=== PATIENT | female | born 1930 | race Caucasian/White ===

== ENCOUNTER → 2016-12-15 | Outpatient (CLI) | payer MEDICARE, BC | LOC: MW.CHRC 14:23 | PROVIDERS: ATTEND Family Medicine | DX: R32 Unspecified urinary incontinence (principal); R73.9 Hyperglycemia, unspecified; R19.7 Diarrhea, unspecified; R06.09 Other forms of dyspnea; Z53.9 Procedure and treatment not carried out, unspecified reason; G30.9 Alzheimer's disease, unspecified | CPT/HCPCS: 99214 ==

== ENCOUNTER → 2017-01-19 | Outpatient (CLI) | payer MEDICARE, BC ==
[2017-01-19 15:48] LABS: CHLORIDE,CL 110 mmol/L (98-110); SODIUM,NA 142 mmol/L (136-146)
== END ==
LOC: MW.CHRC 15:05
PROVIDERS: ATTEND Family Medicine
DX: R73.9 Hyperglycemia, unspecified (principal); R32 Unspecified urinary incontinence; G30.9 Alzheimer's disease, unspecified; R19.7 Diarrhea, unspecified; R06.09 Other forms of dyspnea
CPT/HCPCS: 36415; 80048; 81001; 85025; 99214

== ENCOUNTER 2017-01-20 20:48 | Emergency (ER) | payer MEDICARE, BC ==
[2017-01-20] MEDS ORDERED: Sodium Chloride 0.9% 10 ML Syringe FLUSH PRN (21:25)
[2017-01-20] MEDS ORDERED: Sodium Chloride 0.9% 2.5 ML Syringe FLUSH PRN (21:25)
--- NOTE | 2017-01-20 21:30 | EDM.PDOC ---
ED HPI GENERAL MEDICAL PROBLEM - General Chief Complaint: Neuro Symptoms/Deficits Stated Complaint: PT HAS PAIN AND WEAK Time Seen by Provider: 01/20/17 21:14 - History of Present Illness INITIAL COMMENTS - FREE TEXT/NARRATIVE: HISTORY AND PHYSICAL: History of present illness: The patient is an 86-year-old female who follows in our family practice clinic and was seen in the clinic yesterday and presents with daughter is with multiple new complaints. According to the family she had basic labs done yesterday which I have reviewed, CBC CMP BNP and a UA and she was given a shot for shingles. She complained of some shortness of breath yesterday which was addressed by the physician. According to the family today she had no fevers chills vomiting and has had chronic diarrhea which is not new. They state that she ate normally throughout the day and did complain of a little shortness of breath and seemed more forgetful. She had no dizziness lightheadedness and did not fall. According to them she woke from a nap and immediately complained of diffuse mid and lower abdominal cramping and pain and she seemed to be more forgetful and confused upon awakening. The patient at that time had no speech changes facial drooping or any focal weakness. She seemed to have exhibited to them generalized weakness and inability to stand. She also seemed more short of breath but did not complain of any specific chest pain. She states she's been urinating normally and has no flank pain. She has no upper respiratory complaints no fevers or chills. The family also states that she seemed to be weaker than usual and had difficulty transferring due to weakness in her legs. She had no back or neck pain and no headache. The patient is a very poor historian due to her Alzheimer's and the daughters are presenting me with these multiple new complaints today. Review of systems: As per history of present illness and below otherwise all systems reviewed and negative. Past medical history: As per history of present illness and as reviewed below otherwise noncontributory. Surgical history: As per history of present illness and as reviewed below otherwise noncontributory. Social history: No reported history of drug or alcohol abuse. Family history: As per history of present illness and as reviewed below otherwise noncontributory. Physical exam: General: Well-developed overweight female who is nontoxic and speaking clearly and easily. Vital signs have been reviewed by me. HEENT: Atraumatic, normocephalic, pupils reactive, negative for conjunctival pallor or scleral icterus, mucous membranes moist, throat clear, neck supple, nontender, trachea midline. There is no cervical adenopathy or nuchal rigidity Lungs: Clear to auscultation with some crackles at the bases bilaterally but no work of breathing, breath sounds equal bilaterally, chest nontender. Heart: S1S2, regular rhythm but tachycardic rate on my evaluation, negative for clicks, rubs, or JVD. Abdomen: Soft, nondistended, normoactive bowel sounds, mild tympany in the upper abdomen and diffuse mid and lower mild tenderness on deep palpation bilaterally without rebound or guarding Negative for masses or hepatosplenomegaly. Negative for costovertebral tenderness. Pelvis: Stable nontender. Genitourinary: Deferred. Rectal: Deferred. Extremities: Atraumatic, negative for cords or calf pain. Neurovascular unremarkable. No pedal edema or leg asymmetry Neuro: Awake, alert, oriented. Cranial nerves II through XII unremarkable. Cerebellum unremarkable. Motor was intact 5/5 in the upper extremities the lower extremities it was a 3/5 bilaterally and the patient did have difficulty with transferring. and sensory unremarkable throughout. Exam nonfocal. Patient' s speech was intact and there is no evidence of any facial drooping or lateralizing Back: There are no midline step-offs his defects of the thoracic or lumbar spine and no CVA tenderness her posterior rib tenderness Diagnostics: EKG CBC CMP amylase lipase lactic acid BNP troponin TSH UA urine culture chest x -ray CT scan of the head abdomen and pelvis Therapeutics: Gentle IV fluids oxygen therapy monitor IV Flagyl by mouth Yusuf I discussed with the patient and family at bedside all testing results. I have discussed with them her very large hiatal hernia which may be causing some of her more chronic episodic shortness of breath. I will also discuss with him all the lab tests and have discussed with them the mild sigmoid diverticulitis which may be explaining her abdominal pain. The son seem to be very worried about her confusion that she had after awakening this evening but that has since resolved and I discussed with them the CT scan of the head. She does have a baseline history of Alzheimer's dementia. We discussed her weakness and possible admission but They overall feel that she looks much improved and they are comfortable taking her home. We will give antibiotics here and plan for antibiotics at home and close followup in the clinic. Patient is asking for oral hydration. Repeat heart rate is 81 Impression: Abdominal pain with mild sigmoid diverticulitis, episodic dyspnea with history of large hiatal hernia, history of Alzheimer's dementia and generalized weakness Definitive disposition and diagnosis as appropriate pending reevaluation and review of above. arm/epgastric Pain Score (Numeric/FACES): 5 - Related Data Allergies Allergy/AdvReac Type Severity Reaction Status Date / Time iodine Allergy Other Verified 01/20/17 21:06 Past Medical History HEENT History: Reports: Hard of hearing, Impaired vision 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 Respiratory History: Reports: None Gastrointestinal History: Reports: Hiatal hernia Neurological History: Reports: Alzheimers disease Endocrine/Metabolic History: Reports: Hypothyroidism - Infectious Disease History Infectious Disease History: Reports: Chicken pox, Measles, Mumps Social & Family History - Family History Family Medical History: Noncontributory - Tobacco Use Smoking Status *Q: Former Smoker Second Hand Smoke Exposure: No - Recreational Drug Use Recreational Drug Use: No ED ROS GENERAL - Review of Systems Review Of Systems: ROS reveals no pertinent complaints other than HPI. ED EXAM, GENERAL - Physical Exam Exam: See Below (See dictation) Course - Vital Signs Last Recorded V/S: Last Vital Signs Temp 37.2 C 01/20/17 23:05 Pulse 100 01/20/17 23:05 Resp 20 01/20/17 23:05 BP 105/52 L 01/20/17 23:05 Pulse Ox 96 01/20/17 23:05 - Orders/Labs/Meds Orders: Active Orders 24 hr Category Date Time Status Cardiac Monitoring [RC] . DIRECTED Care 01/20/17 21:24 Active EKG Documentation Completion [RC] STAT Care 01/20/17 21:24 Active Oxygen Therapy, ED [RC] ASDIRECTED Care 01/20/17 21:24 Active Pulse Oximetry [RC] ASDIRECTED Care 01/20/17 21:24 Active Abdomen Pelvis wo Cont [CT] Stat Exams 01/20/17 21:25 Taken Chest 1V Frontal [CR] Stat Exams 01/20/17 21:25 Taken Head wo Cont [CT] Stat Exams 01/20/17 21:25 Taken CULTURE URINE [RM] Stat Lab 01/20/17 22:25 Received Sodium Chloride 0.9% [Normal Saline] 250 ml Med 01/20/17 21:30 Active IV STAT Sodium Chloride 0.9% [Saline Flush] Med 01/20/17 21:25 Active 10 ml FLUSH ASDIRECTED PRN Sodium Chloride 0.9% [Saline Flush] Med 01/20/17 21:25 Active 2.5 ml FLUSH ASDIRECTED PRN metroNIDAZOLE/Normal Saline [Flagyl 500 MG in NS 100 ML Med 01/20/17 23:06 Active ] 500 mg Premix Bag 1 bag IV ONETIME Saline Lock Insert [OM.PC] Stat Oth 01/20/17 21:24 Ordered Medication Orders Sodium Chloride (Normal Saline) 250 mls @ 999 mls/hr IV STAT MARI Last Admin: 01/20/17 21:41 Dose: 999 mls/hr Metronidazole 500 mg/ Premix 100 mls @ 100 mls/hr IV ONETIME ONE Stop: 01/21/17 00:05 Last Admin: 01/20/17 23:13 Dose: 100 mls/hr Sodium Chloride (Saline Flush) 10 ml FLUSH ASDIRECTED PRN PRN Reason: Keep Vein Open Sodium Chloride (Saline Flush) 2.5 ml FLUSH ASDIRECTED PRN PRN Reason: Keep Vein Open Labs: Laboratory Tests 01/20/17 01/20/17 01/20/17 Range/Units 21:31 21:31 21:31 WBC 6.93 (4.0-11.0) K/uL RBC 4.28 L (4.30-5.90) M/uL Hgb 11.0 L (12.0-16.0) g/dL Hct 36.7 (36.0-46.0) % MCV 85.7 (80.0-98.0) fL MCH 25.7 L (27.0-32.0) pg MCHC 30.0 L (31.0-37.0) g/dL RDW Std Deviation 52.0 (28.0-62.0) fl RDW Coeff of Homer 17 H (11.0-15.0) % Plt Count 203 (150-400) K/uL MPV 10.30 (7.40-12.00) fL Neut % (Auto) 61.0 (48.0-80.0) % Lymph % (Auto) 21.6 (16.0-40.0) % [place] % (Auto) 14.9 (0.0-15.0) % Eos % (Auto) 2.2 (0.0-7.0) % Baso % (Auto) 0.3 (0.0-1.5) % Neut # 4.2 (1.4-5.7) K/uL Lymph # 1.5 (0.6-2.4) K/uL [place] # 1.0 H (0.0-0.8) K/uL Eos # 0.2 (0.0-0.7) K/uL Baso # 0.0 (0.0-0.1) K/uL Nucleated RBC % 0.0 /100WBC Nucleated RBCs # 0 K/uL Lactate 0.9 (0.20-2.00) mmol/L Sodium 143 (136-146) mmol/L Potassium 4.4 (3.5-5.1) mmol/L Chloride 110 (98-110) mmol/L Carbon Dioxide 24 (21-31) mmol/L BUN 18 (6.0-23.0) mg/dL Creatinine 0.8 (0.6-1.5) mg/dL Est Cr Clr Drug Dosing 37.60 mL/min Estimated GFR (MDRD) > 60.0 ml/min Glucose 90 (60-110) mg/dL Calcium 9.1 (8.8-10.8) mg/dL Total Bilirubin 0.4 (0.1-1.5) mg/dL AST 22 (5-40) IU/L ALT 17 (8-54) IU/L Alkaline Phosphatase 70 (40-150) Troponin I (0.0-0.29) NG/ML B-Natriuretic Peptide (<100) PG/ML Total Protein 7.5 (6.0-8.0) g/dL Albumin 3.5 (3.4-4.8) g/dL Globulin 4.0 H (2.0-3.5) g/dL Albumin/Globulin Ratio 0.9 L (1.3-2.8) Amylase 117 H (10-90) U/L Lipase 86 H (7-80) U/L TSH 3rd Generation 2.79 (0.47-5.0) uIU/mL Urine Color Urine Appearance Urine pH (5.0-8.0) Ur Specific [place] (1.001-1.035) Urine Protein (NEGATIVE) mg/dL Urine Glucose (UA) (NEGATIVE) mg/dL Urine Ketones (NEGATIVE) mg/dL Urine Occult Blood (NEGATIVE) Urine Nitrite (NEGATIVE) Urine Bilirubin (NEGATIVE) Urine Urobilinogen (<2.0) EU/dL Ur Leukocyte Esterase (NEGATIVE) Urine RBC (0-2/HPF) Urine WBC (0-5/HPF) Ur Epithelial Cells (NONE-FEW) Other Crystals Urine Mucus (NONE-MOD) 01/20/17 01/20/17 01/20/17 Range/Units 21:31 21:31 22:25 WBC (4.0-11.0) K/uL RBC (4.30-5.90) M/uL Hgb (12.0-16.0) g/dL Hct (36.0-46.0) % MCV (80.0-98.0) fL MCH (27.0-32.0) pg MCHC (31.0-37.0) g/dL RDW Std Deviation (28.0-62.0) fl RDW Coeff of Homer (11.0-15.0) % Plt Count (150-400) K/uL MPV (7.40-12.00) fL Neut % (Auto) (48.0-80.0) % Lymph % (Auto) (16.0-40.0) % [place] % (Auto) (0.0-15.0) % Eos % (Auto) (0.0-7.0) % Baso % (Auto) (0.0-1.5) % Neut # (1.4-5.7) K/uL Lymph # (0.6-2.4) K/uL [place] # (0.0-0.8) K/uL Eos # (0.0-0.7) K/uL Baso # (0.0-0.1) K/uL Nucleated RBC % /100WBC Nucleated RBCs # K/uL Lactate (0.20-2.00) mmol/L Sodium (136-146) mmol/L Potassium (3.5-5.1) mmol/L Chloride (98-110) mmol/L Carbon Dioxide (21-31) mmol/L BUN (6.0-23.0) mg/dL Creatinine (0.6-1.5) mg/dL Est Cr Clr Drug Dosing mL/min Estimated GFR (MDRD) ml/min Glucose (60-110) mg/dL Calcium (8.8-10.8) mg/dL Total Bilirubin (0.1-1.5) mg/dL AST (5-40) IU/L ALT (8-54) IU/L Alkaline Phosphatase (40-150) Troponin I < 0.10 (0.0-0.29) NG/ML B-Natriuretic Peptide 449 H (<100) PG/ML Total Protein (6.0-8.0) g/dL Albumin (3.4-4.8) g/dL Globulin (2.0-3.5) g/dL Albumin/Globulin Ratio (1.3-2.8) Amylase (10-90) U/L Lipase (7-80) U/L TSH 3rd Generation (0.47-5.0) uIU/mL Urine Color YELLOW Urine Appearance CLEAR Urine pH 5.0 (5.0-8.0) Ur Specific [place] 1.025 (1.001-1.035) Urine Protein NEGATIVE (NEGATIVE) mg/dL Urine Glucose (UA) NEGATIVE (NEGATIVE) mg/dL Urine Ketones NEGATIVE (NEGATIVE) mg/dL Urine Occult Blood SMALL H (NEGATIVE) Urine Nitrite NEGATIVE (NEGATIVE) Urine Bilirubin NEGATIVE (NEGATIVE) Urine Urobilinogen 1.0 (<2.0) EU/dL Ur Leukocyte Esterase NEGATIVE (NEGATIVE) Urine RBC 0-2 (0-2/HPF) Urine WBC 0-2 (0-5/HPF) Ur Epithelial Cells RARE (NONE-FEW) Other Crystals FEW Urine Mucus LIGHT (NONE-MOD) Meds: Medications Generic Name Dose Route Start Last Admin Trade Name Freq PRN Reason Stop Dose Admin Sodium Chloride 250 mls @ 999 mls/hr 01/20/17 21:30 01/20/17 21:41 Normal Saline IV 999 mls/hr STAT MARI Administration Metronidazole 500 mg/ Premix 100 mls @ 100 mls/hr 01/20/17 23:06 01/20/17 23: 13 IV 01/21/17 00:05 100 mls/hr ONETIME ONE Administration Sodium Chloride 10 ml 01/20/17 21:25 Saline Flush FLUSH ASDIRECTED PRN Keep Vein Open Sodium Chloride 2.5 ml 01/20/17 21:25 Saline Flush FLUSH ASDIRECTED PRN Keep Vein Open Discontinued Medications Generic Name Dose Route Start Last Admin Trade Name Maria Luz PRN Reason Stop Dose Admin Ciprofloxacin 500 mg 01/20/17 23:06 01/20/17 23:13 Ciprofloxacin Hcl PO 01/20/17 23:07 500 mg ONETIME ONE Administration Departure - Departure Time of Disposition: 23:09 Disposition: Home, Self-Care 01 Condition: good Clinical Impression: Generalized weakness, Sigmoid diverticulitis, Hiatal hernia Abdominal pain Qualifiers: Abdominal location: generalized Qualified Code(s): R10.84 - Generalized abdominal pain Dyspnea Qualifiers: Dyspnea type: unspecified Qualified Code(s): R06.00 - Dyspnea, unspecified Referrals: PCP,None [Primary Care Provider] - Forms: ED Department Discharge Additional Instructions: The following information is given to patients seen in the emergency department who are being discharged to home. This information is to outline your options for follow-up care. We provide all patients seen in our emergency department with a follow-up referral. The need for follow-up, as well as the timing and circumstances, are variable depending upon the specifics of your emergency department visit. If you don't have a primary care physician on staff, we will provide you with a referral. We always advise you to contact your personal physician following an emergency department visit to inform them of the circumstance of the visit and for follow-up with them and/or the need for any referrals to a consulting specialist. The emergency department will also refer you to a specialist when appropriate. This referral assures that you have the opportunity for followup care with a specialist. All of these measure are taken in an effort to provide you with optimal care, which includes your followup. Under all circumstances we always encourage you to contact your private physician who remains a resource for coordinating your care. When calling for followup care, please make the office aware that this follow-up is from your recent emergency room visit. If for any reason you are refused follow-up, please contact the [facility] emergency department at and ask to speak to the emergency department charge nurse. [facility] Primary care- [place] [address] Please try to push hydration and take antibiotics until finished. Please call and followup in the clinic in the next few days and return to ER as needed and as discussed. - My Orders Last 24 Hours: My Active Orders 01/20/17 21:24 Cardiac Monitoring [RC] . DIRECTED EKG Documentation Completion [RC] STAT Oxygen Therapy, ED [RC] ASDIRECTED Pulse Oximetry [RC] ASDIRECTED Saline Lock Insert [OM.PC] Stat 01/20/17 21:25 Abdomen Pelvis wo Cont [CT] Stat Chest 1V Frontal [CR] Stat Head wo Cont [CT] Stat Sodium Chloride 0.9% [Saline Flush] 10 ml FLUSH ASDIRECTED PRN Sodium Chloride 0.9% [Saline Flush] 2.5 ml FLUSH ASDIRECTED PRN 01/20/17 21:30 Sodium Chloride 0.9% [Normal Saline] 250 ml IV STAT 01/20/17 22:25 CULTURE URINE [RM] Stat 01/20/17 23:06 metroNIDAZOLE/Normal Saline [Flagyl 500 MG in NS 100 ML] 500 mg Premix Bag 1 bag IV ONETIME - Assessment/Plan Last 24 Hours: My Active Orders 01/20/17 21:24 Cardiac Monitoring [RC] . DIRECTED EKG Documentation Completion [RC] STAT Oxygen Therapy, ED [RC] ASDIRECTED Pulse Oximetry [RC] ASDIRECTED Saline Lock Insert [OM.PC] Stat 01/20/17 21:25 Abdomen Pelvis wo Cont [CT] Stat Chest 1V Frontal [CR] Stat Head wo Cont [CT] Stat Sodium Chloride 0.9% [Saline Flush] 10 ml FLUSH ASDIRECTED PRN Sodium Chloride 0.9% [Saline Flush] 2.5 ml FLUSH ASDIRECTED PRN 01/20/17 21:30 Sodium Chloride 0.9% [Normal Saline] 250 ml IV STAT 01/20/17 22:25 CULTURE URINE [RM] Stat 01/20/17 23:06 metroNIDAZOLE/Normal Saline [Flagyl 500 MG in NS 100 ML] 500 mg Premix Bag 1 bag IV ONETIME
[2017-01-20] MEDS: Sodium Chloride 0.9% 250 ML IV SCH (21:41)
[2017-01-20 22:05] LABS: CHLORIDE,CL 110 mmol/L (98-110); SODIUM,NA 143 mmol/L (136-146)
[2017-01-20] MEDS: metroNIDAZOLE/Normal Saline 500 MG in Premix Bag 1 BAG IV ONE (23:13)
[2017-01-20] MEDS: Ciprofloxacin 500 MG Tab PO ONE (23:13)
[2017-01-21 00:15] VITALS: BP 110/60
--- NOTE | 2017-01-21 18:51 | CR ---
EXAM DATE: 01/20/17 PATIENT'S AGE: 86 Patient: RAJENDRA MAC Facility: [place], [place] Site . Site : 1930 Study: XRay Chest [id number]/15/2017 9:48:47 PM Ordering Physician: Zoe Orlando Final Report: INDICATION: Shortness of breath and weakness TECHNIQUE: Chest 1 view. COMPARISON: 01/05/2017 FINDINGS: Cardiovascular and mediastinum: Stable cardiomegaly. Sternotomy wires noted. Large hiatal hernia. Lungs and pleural space: Lungs are clear. No sign of infiltrate or mass. No sign of pleural effusion. No pneumothorax. Bones and soft tissues: No significant findings. IMPRESSION: No acute pulmonary or cardiac abnormalities. Stable cardiomegaly. Stable large hiatal hernia. Dictated by Taurus Mcclendon MD @ Jan 20 2017 9:51PM (Electronic Signature) Report Signed by Proxy and Original Signed Document filed in the Medical Record. [facility]
--- NOTE | 2017-01-21 18:52 | CT ---
EXAM DATE: 01/20/17 PATIENT'S AGE: 86 Patient: RAJENDRA MAC Facility: [place], [place] Site . Site : 1932 Study: CT Head [id number]/15/2017 10:12:34 PM Ordering Physician: Zoe Orlando Final Report: INDICATION: Pain. Confusion. TECHNIQUE: CT head without contrast. COMPARISON: 07/23/2011 FINDINGS: There is age-related cerebral and cerebellar cortical atrophy, demonstrating interval progression, with proportionate ventriculomegaly, mildly increased. There is no mass effect or midline shift. White matter hypodensities are suggestive of chronic small vessel ischemic changes. 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 There is no loss of pinedo-white differentiation. There is no evidence of an acute intracranial hemorrhage. No acute calvarial fracture is seen. Rotational alignment of C1 on C2 could be positional. There are small mucosal retention cysts or polyps in the maxillary sinuses and debris in the right sphenoid sinus. The mastoid air cells are clear. The visualized orbits are stable. IMPRESSION: No evidence of an acute intracranial hemorrhage, mass effect or loss of pinedo- white differentiation. Atrophy, mildly progressed, and chronic ischemic changes. Rotational alignment of C1 on C2 could be positional. Correlate clinically. Dictated by Pato Cervantes MD @ 01/20/2017 10:28:20 PM Dictated by: Pato Cervantes MD @ 01/20/2017 22:28:25 (Electronic Signature) Report Signed by Proxy and Original Signed Document filed in the Medical Record. [facility]
--- NOTE | 2017-01-21 18:52 | CT ---
EXAM DATE: 01/20/17 PATIENT'S AGE: 86 Patient: RAJENDRA MAC Facility: [place], [place] Site . Site : 1930 Study: CT Abdomen/Pelvis [id number]/15/2017 10:13:52 PM Ordering Physician: Zoe Orlando Final Report: INDICATION: Epigastric pain TECHNIQUE: CT abdomen and pelvis without contrast. COMPARISON: None available FINDINGS: Lower chest: A large hiatal hernia containing the majority of the stomach comment which is located in the medial right base, and a portion of the transverse colon. Minor subsegmental atelectasis or scarring. Post sternotomy and CABG changes. Mildly decreased attenuation in the cardiac chambers is suggestive of anemia. Liver: Unremarkable. Spleen: Unremarkable. Pancreas: Unremarkable. Gallbladder and bile ducts: The gallbladder is not seen, probably resected. Adrenal glands: Unremarkable. Kidneys: No hydronephrosis or discrete urolithiasis. A 2.7 centimeter mildly higher than water attenuation right renal lesion and a 1.5 centimeter isodense lesion, not well evaluated. Probable small renal parapelvic cysts. GI tract: Mild prominence of the gastric antral wall could be related to luminal debris. No mechanical bowel obstruction. The appendix is not clearly seen. There is an ovoid low-attenuation structure along the serosal surface of the proximal ascending colon on images 80 -88, measuring up to 4.6 x 1.5 centimeters, of unclear etiology. Left colonic diverticulosis with mild stranding adjacent to a segment of sigmoid colon which could represent mild or resolving diverticulitis. Vascular structures: Atherosclerotic changes Lymph nodes: Unremarkable. Miscellaneous: Unremarkable. No free air or significant free fluid. Pelvic Organs: Unremarkable. Bones: Unremarkable for age. IMPRESSION: Colonic diverticulosis with mild stranding adjacent to the sigmoid colon suggestive of mild or resolving diverticulitis. A large hiatal hernia containing the majority of the stomach and a portion of the transverse colon. Thickening of the gastric antral wall could be related to luminal debris, however consider followup evaluation in this region. An ovoid low-attenuation structure along the proximal ascending colon wall, of unclear etiology. This is not seen at the expected location of the appendix, although appendiceal mucocele is not excluded. Neoplasm cannot be excluded either. Recommend formal colonic evaluation and followup. No obstructive uropathy. Higher than water attenuation right renal lesions, not well evaluated. Correlate with contrast MRI or sonographic evaluation to exclude solid lesions. Dictated by Pato Cervantes MD @ 01/20/2017 10:44:23 PM Dictated by: Pato Cervantes MD @ 01/20/2017 22:44:29 (Electronic Signature) Report Signed by Proxy and Original Signed Document filed in the Medical Record. [facility]
== END 2017-01-21 00:13 | disposition home or self-care (01) ==
LOC: MW.ED 20:48
DX: K44.9 Diaphragmatic hernia without obstruction or gangrene (principal); R06.09 Other forms of dyspnea; R41.0 Disorientation, unspecified; K57.32 Diverticulitis of large intestine without perforation or abscess without bleeding; E03.9 Hypothyroidism, unspecified; Z87.891 Personal history of nicotine dependence
CPT/HCPCS: 36415; 70450; 71010; 74176; 80053; 81001; 82150; 83605; 83690; 83880; 84443; 84484; 85025; 87086; 87088; 87186; 93005; 96365; 99285; A9270; J7050; 99284

== ENCOUNTER → 2017-01-20 | Outpatient (CLI) | payer MEDICARE, BC | END | disposition home or self-care (01) | LOC: MW.CHRC 14:14 | PROVIDERS: ATTEND Family Medicine | DX: R06.09 Other forms of dyspnea (principal) | CPT/HCPCS: 36415; 83880 ==

== ENCOUNTER 2017-03-23 17:01 | Inpatient (IN) | payer MEDICARE, BC ==
[2017-03-23] MEDS ORDERED: Sodium Chloride 0.9% 2.5 ML Syringe FLUSH PRN (17:18)
[2017-03-23] MEDS ORDERED: Sodium Chloride 0.9% 10 ML Syringe FLUSH PRN (17:18)
[2017-03-23] MEDS: Piperacillin/Tazobactam 3.375 GM in Sodium Chloride 0.9% 50 ML IV SCH ×2 (17:41→23:37)
--- NOTE | 2017-03-23 18:07 | PCM.HP ---
H&P History of Present Illness - General Date of Service: 03/23/17 Source of Information: Family History Limitations: Reports: Other (dementia) - History of Present Illness Initial Comments - Free Text/Narative: The history is obtained from the daughters. 86 yo female with history of dementia admitted for UTI. For the past 2 days she has not been able to walk, not able able to keep anything down and lethargic. Daughter states that the patient is not her usual self. She has been urinating frequently with foul odor. She does not have fever, n/v/d, abdominal pain, cough although she has been having rhinorrhea. Daughter is concerned with her walking. She was walking on her own until last few days where she cannot stand on her feet. She was crawling. The patient felt her muscle aches in the thighs. They are not sure if she has fallen. Since she is not able to walk, the daughters had to use wheelchair to bring her to her appointment today. - Related Data Allergies/Adverse Reactions: Allergies Allergy/AdvReac Type Severity Reaction Status Date / Time iodine Allergy Other Verified 01/20/17 21:06 Home Medications: Home Meds Aspirin 81 mg PO DAILY 03/23/17 [History] Cholecalciferol (Vitamin D3) [Vitamin D3] ASDIRECTED 03/23/17 [History] Clopidogrel Bisulfate [Clopidogrel] 1 tab PO DAILY 03/23/17 [History] Galantamine Hbr [Galantamine ER] 1 cap PO DAILY 03/23/17 [History] Levothyroxine Sodium [Levo-T] 1 tab PO DAILY 03/23/17 [History] Melatonin ASDIRECTED 03/23/17 [History] Memantine HCl [Namenda Xr] 1 cap PO DAILY 03/23/17 [History] Mirabegron [Myrbetriq] 1 tab PO DAILY 03/23/17 [History] [place]-3 Fatty Acids [Fish Oil] 600 mg PO ASDIRECTED 03/23/17 [History] Sertraline HCl [Zoloft] 1 tab PO DAILY 03/23/17 [History] Vitamin E ASDIRECTED 03/23/17 [History] atorvaSTATin Calcium [Atorvastatin Calcium] 1 tab PO DAILY 03/23/17 [History] Past Medical History HEENT History: Reports: Hard of Hearing, Impaired Vision 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 Respiratory History: Reports: None Gastrointestinal History: Reports: Hiatal Hernia Neurological History: Reports: Alzheimers Disease Endocrine/Metabolic History: Reports: Hypothyroidism - Infectious Disease History Infectious Disease History: Reports: Chicken Pox, Measles, Mumps Social & Family History - Family History Family Medical History: Noncontributory - Tobacco Use Smoking Status *Q: Former Smoker Second Hand Smoke Exposure: No - Recreational Drug Use Recreational Drug Use: No H&P Review of Systems - Review of Systems: Review Of Systems: See Below General: Reports: Malaise, Weakness, Fatigue, Decreased Appetite. Denies: Fever , Chills HEENT: Reports: No Symptoms, Rhinitis, Post Nasal Drip Pulmonary: Reports: Shortness of Breath Cardiovascular: Reports: No Symptoms Gastrointestinal: Reports: Decreased Appetite. Denies: Black Stool, Diarrhea, Difficulty Swallowing, Nausea, Vomiting Genitourinary: Reports: Frequency Musculoskeletal: Reports: Leg Pain Skin: Reports: No Symptoms Psychiatric: Reports: Confusion Neurological: Reports: No Symptoms Hematologic/Lymphatic: Reports: Anemia Exam - Exam Exam: See Below - Vital Signs Weight: 74.843 kg - Exam General: Alert, Oriented, Other (dementia. ) HEENT: Conjunctiva Clear, EOMI, Pupils Equal, Pupils Reactive Neck: Supple, Trachea Midline Lungs: Decreased Breath Sounds Cardiovascular: Regular Rate, Regular Rhythm, Systolic Murmur Abdomen: Normal Bowel Sounds, Soft, Tenderness Extremities: Normal Inspection, Normal Pulses. No: Calf Tenderness, Edema Peripheral Pulses: 2+: Dorsalis Pedis (L), Dorsalis Pedis (R) Skin: Warm Neurological: Cranial Nerves Intact, Reflexes Equal Bilateral, Strength Equal Bilateral, Sensation Intact Neuro Extensive - Mental Status: Alert, Normal Mood/Affect, Memory Loss-Remote Events, Memory Loss-Recent Events, Nl Response to Commands, Withdraws to Pain DTR: 2+: Achilles (L), Achilles (R) Psychiatric: Alert, Normal Affect, Normal Mood - Patient Data Presley Results last 24 hrs: Microbiology 03/23/17 17:36 Anaerobic Blood Culture - Final Blood - Venous - Lab Draw *Q Meaningful Use (ADM) - VTE *Q VTE Criteria *Q: - Stroke *Q Stroke Criteria *Q: - AMI *Q AMI Criteria *Q: Problem List Initiated/Reviewed/Updated: Yes Orders Last 24hrs: Active Orders 24 hr Category Date Time Status Regular Diet [DIET] Diet 03/23/17 Dinner Active CULTURE BLOOD [BC] Stat Lab 03/23/17 17:30 Received CULTURE BLOOD [BC] Stat Lab 03/23/17 17:36 Results Piperacillin/Tazobactam [Piperacil-Tazobact] 3.375 gm Med 03/23/17 17:30 Active Sodium Chloride 0.9% [Normal Saline] 50 ml IV Q6H Sodium Chloride 0.9% [Saline Flush] Med 03/23/17 17:18 Active 10 ml FLUSH ASDIRECTED PRN Sodium Chloride 0.9% [Saline Flush] Med 03/23/17 17:18 Active 2.5 ml FLUSH ASDIRECTED PRN Blood Culture x2 Reflex Set [OM.PC] Stat Oth 03/23/17 17:20 Ordered Peripheral IV Insertion Adult [OM.PC] Routine Oth 03/23/17 17:18 Ordered Code Status [Resuscitation Status] Routine Resus Stat 03/23/17 17:44 Ordered Medication Orders Piperacillin Sod/Tazobactam (Sod 3.375 gm/ Sodium Chloride) 50 mls @ 100 mls/ hr IV Q6H MARI Last Admin: 03/23/17 17:41 Dose: 100 mls/hr Sodium Chloride (Saline Flush) 10 ml FLUSH ASDIRECTED PRN PRN Reason: Keep Vein Open Sodium Chloride (Saline Flush) 2.5 ml FLUSH ASDIRECTED PRN PRN Reason: Keep Vein Open Assessment/Plan Comment:: 86 yo female admitted for UTI Start IVF and zosyn check cpk, lactate, blood cultures, urine cultures. Diet: regular CODE status: DNR If CPK is elevated: consider holding lipitor. may resume her synthroid, namenda, aspirn, plavix.
[2017-03-23] MEDS: Sodium Chloride 0.9% 1,000 ML IV SCH (18:43)
[2017-03-24] MEDS: Acetaminophen 500 MG Tab PO PRN ×2 (00:08→23:42)
[2017-03-24] MEDS: Sodium Chloride 0.9% 1,000 ML IV SCH ×5 (03:20→18:43)
[2017-03-24 05:11] LABS: CHLORIDE,CL 106 mmol/L (98-110); SODIUM,NA 139 mmol/L (136-146)
[2017-03-24] MEDS: Piperacillin/Tazobactam 3.375 GM in Sodium Chloride 0.9% 50 ML IV SCH ×4 (05:16→22:33)
[2017-03-24] MEDS: Levothyroxine 25 MCG Tab PO SCH (07:12)
--- NOTE | 2017-03-24 08:23 | PCM.PN ---
- General Info Subjective Update: Patient with dementia. Currently not complaining of pain. Unable to walk - Patient Data Vitals - most recent: Last Vital Signs Temp 36.7 C 03/24/17 08:00 Pulse 103 H 03/24/17 08:00 Resp 22 H 03/24/17 08:00 BP 119/60 03/24/17 08:00 Pulse Ox 91 L 03/24/17 08:00 Weight - most recent: 74.843 kg I&O - last 24 hours: Intake & Output 03/23/17 03/24/17 03/24/17 22:59 06:59 14:59 Intake Total 200 1700 Balance 200 1700 Lab Results last 24 hrs: Laboratory Results - last 24 hr 03/23/17 03/23/17 03/24/17 Range/Units 18:13 18:13 04:43 WBC 13.04 H (4.0-11.0) K/uL RBC 3.87 L (4.30-5.90) M/uL Hgb 10.0 L (12.0-16.0) g/dL Hct 32.7 L (36.0-46.0) % MCV 84.5 (80.0-98.0) fL MCH 25.8 L (27.0-32.0) pg MCHC 30.6 L (31.0-37.0) g/dL RDW Std Deviation 55.2 (28.0-62.0) fl RDW Coeff of Homer 18 H (11.0-15.0) % Plt Count 253 (150-400) K/uL MPV 9.20 (7.40-12.00) fL Neut % (Auto) 82.6 H (48.0-80.0) % Lymph % (Auto) 9.4 L (16.0-40.0) % Cook % (Auto) 7.4 (0.0-15.0) % Eos % (Auto) 0.5 (0.0-7.0) % Baso % (Auto) 0.1 (0.0-1.5) % Neut # (Auto) 10.8 H (1.4-5.7) K/uL Lymph # (Auto) 1.2 (0.6-2.4) K/uL Cook # (Auto) 1.0 H (0.0-0.8) K/uL Eos # (Auto) 0.1 (0.0-0.7) K/uL Baso # (Auto) 0.0 (0.0-0.1) K/uL Nucleated RBC % 0.0 /100WBC Nucleated RBCs # 0 K/uL Lactate 1.2 (0.20-2.00) mmol/L Sodium (136-146) mmol/L Potassium (3.5-5.1) mmol/L Chloride (98-110) mmol/L Carbon Dioxide (21-31) mmol/L BUN (6.0-23.0) mg/dL Creatinine (0.6-1.5) mg/dL Est Cr Clr Drug Dosing mL/min Estimated GFR (MDRD) ml/min Glucose (60-110) mg/dL Calcium (8.8-10.8) mg/dL Creatine Kinase 3612 H (9-236) IU/L 03/24/17 03/24/17 Range/Units 04:43 04:43 WBC (4.0-11.0) K/uL RBC (4.30-5.90) M/uL Hgb (12.0-16.0) g/dL Hct (36.0-46.0) % MCV (80.0-98.0) fL MCH (27.0-32.0) pg MCHC (31.0-37.0) g/dL RDW Std Deviation (28.0-62.0) fl RDW Coeff of Homer (11.0-15.0) % Plt Count (150-400) K/uL MPV (7.40-12.00) fL Neut % (Auto) (48.0-80.0) % Lymph % (Auto) (16.0-40.0) % Cook % (Auto) (0.0-15.0) % Eos % (Auto) (0.0-7.0) % Baso % (Auto) (0.0-1.5) % Neut # (Auto) (1.4-5.7) K/uL Lymph # (Auto) (0.6-2.4) K/uL Cook # (Auto) (0.0-0.8) K/uL Eos # (Auto) (0.0-0.7) K/uL Baso # (Auto) (0.0-0.1) K/uL Nucleated RBC % /100WBC Nucleated RBCs # K/uL Lactate (0.20-2.00) mmol/L Sodium 139 (136-146) mmol/L Potassium 3.4 L (3.5-5.1) mmol/L Chloride 106 (98-110) mmol/L Carbon Dioxide 22 (21-31) mmol/L BUN 13 (6.0-23.0) mg/dL Creatinine 0.7 (0.6-1.5) mg/dL Est Cr Clr Drug Dosing 42.97 mL/min Estimated GFR (MDRD) > 60.0 ml/min Glucose 90 (60-110) mg/dL Calcium 7.8 L (8.8-10.8) mg/dL Creatine Kinase 3857 H (9-236) IU/L Presley Results last 24 hrs: Microbiology 03/23/17 17:30 Anaerobic Blood Culture - Preliminary Blood - Venous 03/23/17 17:36 Anaerobic Blood Culture - Final Blood - Venous - Lab Draw Med Orders - Current: Current Medications Acetaminophen (Tylenol Extra Strength) 500 mg PO Q4H PRN PRN Reason: Pain/Fever Last Admin: 03/24/17 00:08 Dose: 500 mg Aspirin (Aspirin) 81 mg PO DAILY [facility] Atorvastatin Calcium (Lipitor) 20 mg PO DAILY [facility] Clopidogrel Bisulfate (Plavix) 75 mg PO DAILY [facility] Piperacillin Sod/Tazobactam (Sod 3.375 gm/ Sodium Chloride) 50 mls @ 100 mls/ hr IV Q6H [facility] Last Admin: 03/24/17 05:16 Dose: 100 mls/hr Sodium Chloride (Normal Saline) 1,000 mls @ 200 mls/hr IV ASDIRECTED [facility] Levothyroxine Sodium (Levothyroxine) 25 mcg PO ACBREAKFAST [facility] Last Admin: 03/24/17 07:12 Dose: 25 mcg Namenda Xr 28mg Cap (Own Med) 0 cap PO DAILY [facility] Sertraline HCl (Zoloft) 100 mg PO DAILY [facility] Sodium Chloride (Saline Flush) 10 ml FLUSH ASDIRECTED PRN PRN Reason: Keep Vein Open Sodium Chloride (Saline Flush) 2.5 ml FLUSH ASDIRECTED PRN PRN Reason: Keep Vein Open Discontinued Medications Sodium Chloride (Normal Saline) 1,000 mls @ 125 mls/hr IV ASDIRECTED MARI Last Admin: 03/24/17 03:20 Dose: 125 mls/hr - Exam General: cooperative, no acute distress, other (Dementia). No: alert, oriented Neck: supple, no JVD Lungs: Clear to auscultation, Normal respiratory effort Cardiovascular: Regular Rate, Tachycardia Abdomen: no tenderness Extremities: no edema - Problem List Review Problem List Initiated/Reviewed/Updated: Yes - My Orders Last 24 Hours: My Active Orders 03/24/17 08:15 Sodium Chloride 0.9% [Normal Saline] 1,000 ml IV ASDIRECTED - Plan Plan:: 86 yo female with history of Dementia admitted for UTI. 1. Bacteremia secondary to UTI -Temp 38.4 at admission, normal overnight -no signs of shock -WBC 13, Lactate 1.2 -blood cultures day 1 positive for gm negative rods -continue Zosyn -f/u blood and urine cultures 2. Rhabdomyolysis -CK 3857, patient unable to walk, CXR shows no acute changes -increase IV NS to 200 ml/hr -stop atorvastatin -repeat ck in evening
[2017-03-24] MEDS: Clopidogrel 75 MG Tab PO SCH (08:28)
[2017-03-24] MEDS: Aspirin 81 MG Tab.Chew PO SCH (08:28)
[2017-03-24] MEDS: Sertraline 100 MG Tab PO SCH (08:28)
[2017-03-24] MEDS ORDERED: atorvaSTATin 20 MG Tab PO SCH (09:00)
[2017-03-24] MEDS ORDERED: NAMENDA 28 MG PO SCH (09:00)
[2017-03-24] MEDS ORDERED: Potassium Chloride 20 MEQ Tab.ER PO ONE (13:29)
[2017-03-25] MEDS: Sodium Chloride 0.9% 1,000 ML IV SCH ×2 (02:06→10:47)
[2017-03-25] MEDS: Piperacillin/Tazobactam 3.375 GM in Sodium Chloride 0.9% 50 ML IV SCH ×4 (04:40→23:32)
[2017-03-25 05:34] LABS: CHLORIDE,CL 113 mmol/L (98-110); SODIUM,NA 145 mmol/L (136-146)
[2017-03-25] MEDS: Levothyroxine 25 MCG Tab PO SCH (06:41)
[2017-03-25] MEDS: Aspirin 81 MG Tab.Chew PO SCH (08:13)
[2017-03-25] MEDS: Clopidogrel 75 MG Tab PO SCH (08:13)
[2017-03-25] MEDS: Sertraline 100 MG Tab PO SCH (08:14)
[2017-03-25] MEDS ORDERED: Furosemide 40 MG/4 ML VIAL IVPUSH ONE (08:59)
[2017-03-25] MEDS ORDERED: Sodium Chloride 0.9% 1,000 ML IV SCH ×2 (11:45)
--- NOTE | 2017-03-25 13:15 | CR ---
EXAMINATION: Portable chest radiograph. HISTORY: Dyspnea. FINDINGS: The trachea is midline. The cardiomediastinal silhouette is within normal limits. No pulmonary infil trates, effusions or pneumothorax. There is a large hiatal hernia. Osseous structures appear unremarkable. Median sternotomy wires are noted. IMPRESSION: 1. No acute cardiopulmonary process. 2. Large hiatal hernia.
[2017-03-25] MEDS: Furosemide 40 MG/4 ML VIAL IVPUSH SCH ×2 (17:50→20:15)
--- NOTE | 2017-03-25 17:54 | PCM.PN ---
- General Info Date of Service: 03/25/17 Admission Dx/Problem (Free Text): UTI, Bacteremia, Rhabdomyolysis Subjective Update: Patient with dementia. Currently not complaining of pain. Unable to walk - Review of Systems Systems Review Comment:: unable to maintain due to baseline dementia - Patient Data Vitals - most recent: Last Vital Signs Temp 37.2 C 03/25/17 15:00 Pulse 91 03/25/17 15:00 Resp 18 03/25/17 15:00 BP 137/60 03/25/17 15:00 Pulse Ox 93 L 03/25/17 15:00 Weight - most recent: 74.843 kg I&O - last 24 hours: Intake & Output 03/25/17 03/25/17 03/25/17 06:59 14:59 22:59 Intake Total 3746 750 Output Total 2150 Balance 3746 -1400 Lab Results last 24 hrs: Laboratory Results - last 24 hr 03/24/17 03/25/17 03/25/17 Range/Units 17:30 05:01 05:01 WBC 9.85 (4.0-11.0) K/uL RBC 3.74 L (4.30-5.90) M/uL Hgb 9.6 L (12.0-16.0) g/dL Hct 32.0 L (36.0-46.0) % MCV 85.6 (80.0-98.0) fL MCH 25.7 L (27.0-32.0) pg MCHC 30.0 L (31.0-37.0) g/dL RDW Std Deviation 56.6 (28.0-62.0) fl RDW Coeff of [place] 18 H (11.0-15.0) % Plt Count 222 (150-400) K/uL MPV 9.40 (7.40-12.00) fL Neut % (Auto) 80.8 H (48.0-80.0) % Lymph % (Auto) 10.1 L (16.0-40.0) % [place] % (Auto) 7.9 (0.0-15.0) % Eos % (Auto) 1.1 (0.0-7.0) % Baso % (Auto) 0.1 (0.0-1.5) % Neut # (Auto) 8.0 H (1.4-5.7) K/uL Lymph # (Auto) 1.0 (0.6-2.4) K/uL [place] # (Auto) 0.8 (0.0-0.8) K/uL Eos # (Auto) 0.1 (0.0-0.7) K/uL Baso # (Auto) 0.0 (0.0-0.1) K/uL Nucleated RBC % 0.0 /100WBC Nucleated RBCs # 0 K/uL Sodium 145 (136-146) mmol/L Potassium 3.9 (3.5-5.1) mmol/L Chloride 113 H (98-110) mmol/L Carbon Dioxide 22 (21-31) mmol/L BUN 9 (6.0-23.0) mg/dL Creatinine 0.7 (0.6-1.5) mg/dL Est Cr Clr Drug Dosing 42.97 mL/min Estimated GFR (MDRD) > 60.0 ml/min Glucose 96 (60-110) mg/dL Calcium 7.8 L (8.8-10.8) mg/dL Creatine Kinase 3802 H (9-236) IU/L 03/25/17 Range/Units 05:01 WBC (4.0-11.0) K/uL RBC (4.30-5.90) M/uL Hgb (12.0-16.0) g/dL Hct (36.0-46.0) % MCV (80.0-98.0) fL MCH (27.0-32.0) pg MCHC (31.0-37.0) g/dL RDW Std Deviation (28.0-62.0) fl RDW Coeff of Homer (11.0-15.0) % Plt Count (150-400) K/uL MPV (7.40-12.00) fL Neut % (Auto) (48.0-80.0) % Lymph % (Auto) (16.0-40.0) % [place] % (Auto) (0.0-15.0) % Eos % (Auto) (0.0-7.0) % Baso % (Auto) (0.0-1.5) % Neut # (Auto) (1.4-5.7) K/uL Lymph # (Auto) (0.6-2.4) K/uL [place] # (Auto) (0.0-0.8) K/uL Eos # (Auto) (0.0-0.7) K/uL Baso # (Auto) (0.0-0.1) K/uL Nucleated RBC % /100WBC Nucleated RBCs # K/uL Sodium (136-146) mmol/L Potassium (3.5-5.1) mmol/L Chloride (98-110) mmol/L Carbon Dioxide (21-31) mmol/L BUN (6.0-23.0) mg/dL Creatinine (0.6-1.5) mg/dL Est Cr Clr Drug Dosing mL/min Estimated GFR (MDRD) ml/min Glucose (60-110) mg/dL Calcium (8.8-10.8) mg/dL Creatine Kinase 2965 H (9-236) IU/L Presley Results last 24 hrs: Microbiology 03/23/17 17:36 Aerobic Blood Culture - Preliminary Blood - Venous - Lab Draw NO GROWTH AFTER 2 DAYS Anaerobic Blood Culture - Final 03/23/17 17:30 Aerobic Blood Culture - Preliminary Blood - Venous NO GROWTH AFTER 2 DAYS Anaerobic Blood Culture - Preliminary Med Orders - Current: Current Medications Acetaminophen (Tylenol Extra Strength) 500 mg PO Q4H PRN PRN Reason: Pain/Fever Last Admin: 03/24/17 23:42 Dose: 500 mg Aspirin (Aspirin) 81 mg PO DAILY [facility] [place] Last Admin: 03/25/17 08:13 Dose: 81 mg Clopidogrel Bisulfate (Plavix) 75 mg PO DAILY [facility] [place] Last Admin: 03/25/17 08:13 Dose: 75 mg Furosemide (Lasix) 40 mg IVPUSH BID [facility] [place] Piperacillin Sod/Tazobactam (Sod 3.375 gm/ Sodium Chloride) 50 mls @ 100 mls/ hr IV Q6H [facility] [place] Last Admin: 03/25/17 11:32 Dose: 100 mls/hr Sodium Chloride (Normal Saline) 1,000 mls @ 75 mls/hr IV ASDIRECTED [facility] [place] Levothyroxine Sodium (Levothyroxine) 25 mcg PO ACBREAKFAST [facility] [place] Last Admin: 03/25/17 06:41 Dose: 25 mcg Namenda Xr 28mg Cap (Own Med) 1 each PO BEDTIME [facility] [place] Sertraline HCl (Zoloft) 100 mg PO DAILY [facility] [place] Last Admin: 03/25/17 08:14 Dose: 100 mg Sodium Chloride (Saline Flush) 10 ml FLUSH ASDIRECTED PRN PRN Reason: Keep Vein Open Sodium Chloride (Saline Flush) 2.5 ml FLUSH ASDIRECTED PRN PRN Reason: Keep Vein Open Discontinued Medications Atorvastatin Calcium (Lipitor) 20 mg PO DAILY [facility] [place] Last Admin: 03/24/17 08:28 Dose: 20 mg Furosemide (Lasix) 40 mg IVPUSH NOW ONE Stop: 03/25/17 09:00 Last Admin: 03/25/17 09:44 Dose: 40 mg Sodium Chloride (Normal Saline) 1,000 mls @ 125 mls/hr IV ASDIRECTED [facility] [place] Last Admin: 03/24/17 03:20 Dose: 125 mls/hr Sodium Chloride (Normal Saline) 1,000 mls @ 200 mls/hr IV ASDIRECTED [facility] [place] Last Admin: 03/24/17 17:19 Dose: 200 mls/hr Sodium Chloride (Normal Saline) 1,000 mls @ 125 mls/hr IV ASDIRECTED [facility] [place] Last Admin: 03/25/17 10:47 Dose: 125 mls/hr Sodium Chloride (Normal Saline) 1,000 mls @ 75 mls/hr IV ASDIRECTED [facility] [place] Namenda Xr 28mg Cap (Own Med) 0 cap PO DAILY [facility] [place] Last Admin: 03/24/17 08:29 Dose: 1 cap Potassium Chloride (Klor-Con M20) 40 meq PO ONETIME ONE Stop: 03/24/17 13:30 Last Admin: 03/24/17 13:35 Dose: 40 meq - Exam General: no acute distress. No: alert, oriented Neck: supple, no JVD Lungs: Clear to auscultation, Normal respiratory effort Cardiovascular: Regular Rate, Regular Rhythm Abdomen: no tenderness Extremities: edema (mild) Peripheral Pulses: 2+: Dorsalis Pedis (L), Dorsalis Pedis (R) Skin: intact Neurological: no new focal deficit - Problem List Review Problem List Initiated/Reviewed/Updated: Yes - My Orders Last 24 Hours: My Active Orders 03/25/17 17:30 Furosemide [Lasix] 40 mg IVPUSH BID 03/26/17 05:00 CREATINE KINASE,CK [CHEM] Routine - Plan Plan:: 86 yo female with history of Dementia admitted for UTI. 1. Bacteremia secondary to UTI -afebrile, leukocytosis resolved -blood cultures positive for gm negative rods -continue Zosyn -f/u blood and urine cultures 2. Rhabdomyolysis, improving -CXR obtained to r/o volume overlad and showed no acute changes -insert harrington, strict I&O's -IV NS @ 75 ml/hr -Lasix 40 mg IV BID -repeat CK in morning -continue to monitor renal function & volume status -encourage ambulation with assistance 3. as per orders
[2017-03-25] MEDS: NAMENDA 28 MG PO SCH (20:20)
[2017-03-26] MEDS: Piperacillin/Tazobactam 3.375 GM in Sodium Chloride 0.9% 50 ML IV SCH ×3 (04:39→22:22)
[2017-03-26 05:33] LABS: CHLORIDE,CL 102 mmol/L (98-110); SODIUM,NA 139 mmol/L (136-146)
[2017-03-26] MEDS: Levothyroxine 25 MCG Tab PO SCH (06:52)
[2017-03-26] MEDS ORDERED: Potassium Chloride 20 MEQ Tab.ER PO ONE ×2 (08:24→17:29)
[2017-03-26] MEDS: Furosemide 40 MG/4 ML VIAL IVPUSH SCH (08:46)
[2017-03-26] MEDS: Clopidogrel 75 MG Tab PO SCH (08:47)
[2017-03-26] MEDS: Aspirin 81 MG Tab.Chew PO SCH (08:47)
[2017-03-26] MEDS: Sertraline 100 MG Tab PO SCH (08:47)
[2017-03-26] MEDS: NS + KCl 20mEq/L 1,000 ML IV SCH ×2 (08:48→20:08)
--- NOTE | 2017-03-26 11:00 | PCM.PN ---
- General Info Date of Service: 03/26/17 Admission Dx/Problem (Free Text): UTI, Bacteremia, Rhabdomyolysis Functional Status: Reports: pain controlled, tolerating diet, urinating. Denies : ambulating - Review of Systems Systems Review Comment:: patient with baseline dementia - Patient Data Vitals - most recent: Last Vital Signs Temp 36.9 C 03/26/17 08:00 Pulse 81 03/26/17 08:00 Resp 17 03/26/17 08:00 BP 117/63 03/26/17 08:00 Pulse Ox 94 L 03/26/17 08:00 Weight - most recent: 74.843 kg I&O - last 24 hours: Intake & Output 03/25/17 03/26/17 03/26/17 22:59 06:59 14:59 Intake Total 800 2005 Output Total 2150 3350 Balance -1350 -1345 Lab Results last 24 hrs: Laboratory Results - last 24 hr 03/26/17 03/26/17 03/26/17 Range/Units 05:05 05:05 05:05 WBC 10.01 (4.0-11.0) K/uL RBC 3.95 L (4.30-5.90) M/uL Hgb 10.2 L (12.0-16.0) g/dL Hct 33.1 L (36.0-46.0) % MCV 83.8 (80.0-98.0) fL MCH 25.8 L (27.0-32.0) pg MCHC 30.8 L (31.0-37.0) g/dL RDW Std Deviation 55.0 (28.0-62.0) fl RDW Coeff of Homer 18 H (11.0-15.0) % Plt Count 240 (150-400) K/uL MPV 9.20 (7.40-12.00) fL Neut % (Auto) 78.0 (48.0-80.0) % Lymph % (Auto) 12.4 L (16.0-40.0) % [place] % (Auto) 8.1 (0.0-15.0) % Eos % (Auto) 1.4 (0.0-7.0) % Baso % (Auto) 0.1 (0.0-1.5) % Neut # (Auto) 7.8 H (1.4-5.7) K/uL Lymph # (Auto) 1.2 (0.6-2.4) K/uL [place] # (Auto) 0.8 (0.0-0.8) K/uL Eos # (Auto) 0.1 (0.0-0.7) K/uL Baso # (Auto) 0.0 (0.0-0.1) K/uL Nucleated RBC % 0.0 /100WBC Nucleated RBCs # 0 K/uL Sodium 139 (136-146) mmol/L Potassium 2.8 L (3.5-5.1) mmol/L Chloride 102 (98-110) mmol/L Carbon Dioxide 28 (21-31) mmol/L BUN 10 (6.0-23.0) mg/dL Creatinine 0.7 (0.6-1.5) mg/dL Est Cr Clr Drug Dosing 42.97 mL/min Estimated GFR (MDRD) > 60.0 ml/min Glucose 93 (60-110) mg/dL Calcium 8.3 L (8.8-10.8) mg/dL Magnesium (1.5-2.3) mEq/L Creatine Kinase 4158 H (9-236) IU/L 03/26/17 Range/Units 05:05 WBC (4.0-11.0) K/uL RBC (4.30-5.90) M/uL Hgb (12.0-16.0) g/dL Hct (36.0-46.0) % MCV (80.0-98.0) fL MCH (27.0-32.0) pg MCHC (31.0-37.0) g/dL RDW Std Deviation (28.0-62.0) fl RDW Coeff of Homer (11.0-15.0) % Plt Count (150-400) K/uL MPV (7.40-12.00) fL Neut % (Auto) (48.0-80.0) % Lymph % (Auto) (16.0-40.0) % [place] % (Auto) (0.0-15.0) % Eos % (Auto) (0.0-7.0) % Baso % (Auto) (0.0-1.5) % Neut # (Auto) (1.4-5.7) K/uL Lymph # (Auto) (0.6-2.4) K/uL [place] # (Auto) (0.0-0.8) K/uL Eos # (Auto) (0.0-0.7) K/uL Baso # (Auto) (0.0-0.1) K/uL Nucleated RBC % /100WBC Nucleated RBCs # K/uL Sodium (136-146) mmol/L Potassium (3.5-5.1) mmol/L Chloride (98-110) mmol/L Carbon Dioxide (21-31) mmol/L BUN (6.0-23.0) mg/dL Creatinine (0.6-1.5) mg/dL Est Cr Clr Drug Dosing mL/min Estimated GFR (MDRD) ml/min Glucose (60-110) mg/dL Calcium (8.8-10.8) mg/dL Magnesium 1.2 L (1.5-2.3) mEq/L Creatine Kinase (9-236) IU/L Presley Results last 24 hrs: Microbiology 03/23/17 17:30 Aerobic Blood Culture - Preliminary Blood - Venous NO GROWTH AFTER 2 DAYS Anaerobic Blood Culture - Final Escherichia Coli 03/23/17 17:36 Aerobic Blood Culture - Preliminary Blood - Venous - Lab Draw NO GROWTH AFTER 2 DAYS Anaerobic Blood Culture - Final Med Orders - Current: Current Medications Acetaminophen (Tylenol Extra Strength) 500 mg PO Q4H PRN PRN Reason: Pain/Fever Last Admin: 03/24/17 23:42 Dose: 500 mg Aspirin (Aspirin) 81 mg PO DAILY [facility] Last Admin: 03/26/17 08:47 Dose: 81 mg Clopidogrel Bisulfate (Plavix) 75 mg PO DAILY [facility] Last Admin: 03/26/17 08:47 Dose: 75 mg Furosemide (Lasix) 40 mg IVPUSH BID [facility] Last Admin: 03/26/17 08:46 Dose: 40 mg Piperacillin Sod/Tazobactam (Sod 3.375 gm/ Sodium Chloride) 50 mls @ 100 mls/ hr IV Q6H [facility] Last Admin: 03/26/17 10:52 Dose: 100 mls/hr Potassium Chloride/Sodium Chloride (Normal Saline With 20 Meq Kcl) 1,000 mls @ 125 mls/hr IV ASDIRECTED [facility] Last Admin: 03/26/17 08:48 Dose: 125 mls/hr Levothyroxine Sodium (Levothyroxine) 25 mcg PO ACBREAKFAST [facility] Last Admin: 03/26/17 06:52 Dose: 25 mcg Namenda Xr 28mg Cap (Own Med) 1 each PO BEDTIME [facility] Last Admin: 03/25/17 20:20 Dose: 1 each Sertraline HCl (Zoloft) 100 mg PO DAILY [facility] Last Admin: 03/26/17 08:47 Dose: 100 mg Sodium Chloride (Saline Flush) 10 ml FLUSH ASDIRECTED PRN PRN Reason: Keep Vein Open Sodium Chloride (Saline Flush) 2.5 ml FLUSH ASDIRECTED PRN PRN Reason: Keep Vein Open Discontinued Medications Atorvastatin Calcium (Lipitor) 20 mg PO DAILY [facility] Last Admin: 03/24/17 08:28 Dose: 20 mg Furosemide (Lasix) 40 mg IVPUSH NOW ONE Stop: 03/25/17 09:00 Last Admin: 03/25/17 09:44 Dose: 40 mg Sodium Chloride (Normal Saline) 1,000 mls @ 125 mls/hr IV ASDIRECTED [facility] Last Admin: 03/24/17 03:20 Dose: 125 mls/hr Sodium Chloride (Normal Saline) 1,000 mls @ 200 mls/hr IV ASDIRECTED [facility] Last Admin: 03/24/17 17:19 Dose: 200 mls/hr Sodium Chloride (Normal Saline) 1,000 mls @ 125 mls/hr IV ASDIRECTED [facility] Last Admin: 03/25/17 10:47 Dose: 125 mls/hr Sodium Chloride (Normal Saline) 1,000 mls @ 75 mls/hr IV ASDIRECTED [facility] Sodium Chloride (Normal Saline) 1,000 mls @ 75 mls/hr IV ASDIRECTED [facility] Last Admin: 03/26/17 04:42 Dose: 75 mls/hr Namenda Xr 28mg Cap (Own Med) 0 cap PO DAILY [facility] Last Admin: 03/24/17 08:29 Dose: 1 cap Potassium Chloride (Klor-Con M20) 40 meq PO ONETIME ONE Stop: 03/24/17 13:30 Last Admin: 03/24/17 13:35 Dose: 40 meq Potassium Chloride (Klor-Con M20) 40 meq PO ONETIME ONE Stop: 03/26/17 08:25 Last Admin: 03/26/17 08:47 Dose: 40 meq - Exam General: no acute distress. No: alert, oriented HEENT: Pupils equal, Pupils reactive Neck: supple, no JVD Lungs: Clear to auscultation, Normal respiratory effort Cardiovascular: Regular Rate, Regular Rhythm Abdomen: bowel sounds present, soft, no tenderness, no distension Extremities: edema (mild) Peripheral Pulses: 2+: Dorsalis Pedis (L), Dorsalis Pedis (R) Skin: intact Neurological: no new focal deficit - Problem List Review Problem List Initiated/Reviewed/Updated: Yes - My Orders Last 24 Hours: My Active Orders 03/25/17 17:30 Furosemide [Lasix] 40 mg IVPUSH BID 03/26/17 08:30 NS + KCl 20mEq/L [Normal Saline with 20 mEq KCl] 1,000 ml IV ASDIRECTED - Plan Plan:: 86 yo female with history of Dementia admitted for UTI. assessment: 1. Bacteremia secondary to UTI -afebrile, leukocytosis resolved -Anaerobic blood cultures positive for E. Coli, awaiting aerobic cultures -on Zosyn 2. Rhabdomyolysis -On NS @ 75 ml/hour and Lasix 40 mg BID -CK worsening -harrington in place, strict I&O's, currently -2695 balance 3. Hypokalemia 4. Hypomagnasemia Plan: 1. Bacteremia secondary to UTI -repeat BC to confirm resolutin -switch Zosyn to Cetriaxone based on sensitivity 2.Rhabdomyolysis -Increase IVF rate to 125 ml/hour -repeat ck tomorrow -continue to monitor renal function & volume status -encourage ambulation with assistance 3. Hypokalemia -switch NS to NS+20 meq k -k 40 meq PO -repeat labs in evening 4. Hypomagnasemia -Mg 4 gm IV -repeat labs in evening
[2017-03-26] MEDS ORDERED: Magnesium Sulfate/Water 4 GM in Premix Bag 1 BAG IV ONE (11:12)
[2017-03-26] MEDS ORDERED: cefTRIAXone 1 GM in Premix Bag 1 BAG IV SCH (14:30)
[2017-03-26 16:34] LABS: CHLORIDE,CL 99 mmol/L (98-110); SODIUM,NA 138 mmol/L (136-146)
[2017-03-26] MEDS: Acetaminophen 500 MG Tab PO PRN (17:48)
[2017-03-26] MEDS: NAMENDA 28 MG PO SCH (20:55)
--- NOTE | 2017-03-26 22:01 | PCM.SN ---
- Free Text/Narrative Note: CT scan of abdomen and pelvis was obtain due to complaints of back pain. It showed sigmoid diverticulitis complicated by 5x4x4 cm abscess. I spoke with daughter at bedside and relayed Dr. Patel's opinion that the patient should be transferred for percutaneous drainage. I did discuss the possibility of worsening infection if the abscess is not drained. The daughter does not want transfer tonight and is wanting to discuss with family regarding transfer vs conservative and palliative treatment here.
[2017-03-27] MEDS: Acetaminophen 325 MG Tab PO SCH ×2 (01:31→10:57)
[2017-03-27] MEDS: Piperacillin/Tazobactam 3.375 GM in Sodium Chloride 0.9% 50 ML IV SCH ×2 (03:36→10:57)
[2017-03-27] MEDS: NS + KCl 20mEq/L 1,000 ML IV SCH (04:51)
[2017-03-27] MEDS: Levothyroxine 25 MCG Tab PO SCH (06:29)
[2017-03-27 06:48] LABS: CHLORIDE,CL 109 mmol/L (98-110); SODIUM,NA 144 mmol/L (136-146)
[2017-03-27] MEDS: Aspirin 81 MG Tab.Chew PO SCH (08:37)
[2017-03-27] MEDS: Clopidogrel 75 MG Tab PO SCH (08:38)
[2017-03-27] MEDS: Sertraline 100 MG Tab PO SCH (08:41)
--- NOTE | 2017-03-27 10:52 | PCM.DCSUM1 ---
Discharge Summary - Discharge Data Discharge Date: 03/27/17 Discharge Disposition: DC/Tfer to Acute Hospital 02 Condition: Good - Patient Summary/Data Consults: Consultations 03/23/17 18:44 PT Evaluation and Treatment [CONS] Routine Hospital Course: Admission diagnosis: Urinary tract Infection Discharge diagnosis: Sigmoid divertriculitis complicated by 5 cm abscess Ecoli bacteremia UTI 86 yo female with pmh of dementia and coronary artery disease who was admitted from [facility] for UTI. She presented with lethargy and fevers. WBC was 13,040 and CPK was 3,612. UA was positive for nitrates and 3+ bacteria. Her blood cultures grew out E.coli. She was treated with Zosyn. During her hospital course it was noted that she had some abdominal discomfort. CT scan of the abdomen was obtained and showed sigmoid colon diverticulitis complicated by 5 cm contained perforation or abscess in the right lower quadrant adjacent to the sigmoid colon. I spoke with our general surgeon Dr. Patel who recommended transferring patient for percutaneous drainage. I spoke with Dr. Anderson at [facility] who has has accepted the patient. Ground transportation was arranged. - Discharge Plan Home Medications: Home Meds Cholecalciferol (Vitamin D3) [Vitamin D3] 2,000 units PO DAILY 03/23/17 [History ] Galantamine Hbr [Galantamine ER] 16 mg PO DAILY 03/23/17 [History] Memantine HCl [Namenda Xr] 28 mg PO DAILY 03/23/17 [History] Mirabegron [Myrbetriq] 50 mg PO DAILY 03/23/17 [History] RX: Aspirin 81 mg PO DAILY 03/23/17 [History] RX: Clopidogrel Bisulfate [Clopidogrel] 75 mg PO DAILY 03/23/17 [History] RX: Levothyroxine Sodium [Levo-T] 25 mcg PO ACBREAKFAST 03/23/17 [History] RX: Melatonin 3 mg PO BEDTIME PRN 03/23/17 [History] RX: Sertraline HCl [Zoloft] 100 mg PO DAILY 03/23/17 [History] RX: Vitamin E 400 units PO DAILY 03/23/17 [History] atorvaSTATin Calcium [Atorvastatin Calcium] 20 mg PO DAILY 03/23/17 [History] RX: Phoenix-3 Fatty Acids/Fish Oil [Cvs Fish Oil 1,000 mg Softgel] 1,000 mg PO DAILY 03/24/17 [History] - Patient Data Vitals - Most Recent: Last Vital Signs Temp 36.7 C 03/27/17 07:00 Pulse 75 03/27/17 07:00 Resp 18 03/27/17 07:00 BP 124/56 L 03/27/17 07:00 Pulse Ox 95 03/27/17 07:00 Weight - Most Recent: 74.843 kg I&O - Last 24 hours: Intake & Output 03/26/17 03/27/17 03/27/17 22:59 06:59 14:59 Intake Total 1201 2522 Output Total 1999 122 Balance -799 1297 Lab Results - Last 24 hrs: Laboratory Results - last 24 hr 03/26/17 03/27/17 03/27/17 Range/Units 16:05 05:46 05:46 WBC 8.34 (4.0-11.0) K/uL RBC 3.97 L (4.30-5.90) M/uL Hgb 10.3 L (12.0-16.0) g/dL Hct 33.9 L (36.0-46.0) % MCV 85.4 (80.0-98.0) fL MCH 25.9 L (27.0-32.0) pg MCHC 30.4 L (31.0-37.0) g/dL RDW Std Deviation 56.4 (28.0-62.0) fl RDW Coeff of Homer 18 H (11.0-15.0) % Plt Count 238 (150-400) K/uL MPV 9.50 (7.40-12.00) fL Neut % (Auto) 75.1 (48.0-80.0) % Lymph % (Auto) 12.6 L (16.0-40.0) % [place] % (Auto) 9.6 (0.0-15.0) % Eos % (Auto) 2.5 (0.0-7.0) % Baso % (Auto) 0.2 (0.0-1.5) % Neut # (Auto) 6.3 H (1.4-5.7) K/uL Lymph # (Auto) 1.1 (0.6-2.4) K/uL [place] # (Auto) 0.8 (0.0-0.8) K/uL Eos # (Auto) 0.2 (0.0-0.7) K/uL Baso # (Auto) 0.0 (0.0-0.1) K/uL Nucleated RBC % 0.0 /100WBC Nucleated RBCs # 0 K/uL Sodium 138 144 (136-146) mmol/L Potassium 3.1 L 4.6 (3.5-5.1) mmol/L Chloride 99 109 (98-110) mmol/L Carbon Dioxide 28 28 (21-31) mmol/L BUN 11 11 (6.0-23.0) mg/dL Creatinine 0.7 0.7 (0.6-1.5) mg/dL Est Cr Clr Drug Dosing 42.97 42.97 mL/min Estimated GFR (MDRD) > 60.0 > 60.0 ml/min Glucose 117 H 104 (60-110) mg/dL Calcium 8.1 L 8.2 L (8.8-10.8) mg/dL Magnesium 1.9 1.8 (1.5-2.3) mEq/L Creatine Kinase 3790 H (9-236) IU/L THADDEUS Results - Last 24 hrs: Microbiology 03/23/17 17:36 Aerobic Blood Culture - Preliminary Blood - Venous - Lab Draw NO GROWTH AFTER 3 DAYS Anaerobic Blood Culture - Final 03/23/17 17:30 Aerobic Blood Culture - Preliminary Blood - Venous NO GROWTH AFTER 3 DAYS Anaerobic Blood Culture - Final Escherichia Coli Med Orders - Current: Current Medications Acetaminophen (Tylenol) 650 mg PO Q8H [facility] Last Admin: 03/27/17 01:31 Dose: 650 mg Aspirin (Aspirin) 81 mg PO DAILY [facility] Last Admin: 03/27/17 08:37 Dose: 81 mg Clopidogrel Bisulfate (Plavix) 75 mg PO DAILY [facility] Last Admin: 03/27/17 08:38 Dose: 75 mg Potassium Chloride/Sodium Chloride (Normal Saline With 20 Meq Kcl) 1,000 mls @ 125 mls/hr IV ASDIRECTED [facility] Last Admin: 03/27/17 04:51 Dose: 125 mls/hr Ceftriaxone Sodium/Dextrose 1 (gm/ Premix) 50 mls @ 100 mls/hr IV Q24H [facility] Last Admin: 03/26/17 14:36 Dose: 100 mls/hr Piperacillin Sod/Tazobactam (Sod 3.375 gm/ Sodium Chloride) 50 mls @ 100 mls/ hr IV Q6H [facility] Last Admin: 03/27/17 03:36 Dose: 100 mls/hr Levothyroxine Sodium (Levothyroxine) 25 mcg PO ACBREAKFAST [facility] Last Admin: 03/27/17 06:29 Dose: 25 mcg Namenda Xr 28mg Cap (Own Med) 1 each PO BEDTIME [facility] Last Admin: 03/26/17 20:55 Dose: 1 each Sertraline HCl (Zoloft) 100 mg PO DAILY [facility] Last Admin: 03/27/17 08:41 Dose: 100 mg Sodium Chloride (Saline Flush) 10 ml FLUSH ASDIRECTED PRN PRN Reason: Keep Vein Open Sodium Chloride (Saline Flush) 2.5 ml FLUSH ASDIRECTED PRN PRN Reason: Keep Vein Open Discontinued Medications Acetaminophen (Tylenol Extra Strength) 500 mg PO Q4H PRN PRN Reason: Pain/Fever Last Admin: 03/26/17 17:48 Dose: 500 mg Atorvastatin Calcium (Lipitor) 20 mg PO DAILY [facility] Last Admin: 03/24/17 08:28 Dose: 20 mg Furosemide (Lasix) 40 mg IVPUSH NOW ONE Stop: 03/25/17 09:00 Last Admin: 03/25/17 09:44 Dose: 40 mg Furosemide (Lasix) 40 mg IVPUSH BID [facility] Last Admin: 03/26/17 08:46 Dose: 40 mg Piperacillin Sod/Tazobactam (Sod 3.375 gm/ Sodium Chloride) 50 mls @ 100 mls/ hr IV Q6H [facility] Last Admin: 03/26/17 10:52 Dose: 100 mls/hr Sodium Chloride (Normal Saline) 1,000 mls @ 125 mls/hr IV ASDIRECTED [facility] Last Admin: 03/24/17 03:20 Dose: 125 mls/hr Sodium Chloride (Normal Saline) 1,000 mls @ 200 mls/hr IV ASDIRECTED [facility] Last Admin: 03/24/17 17:19 Dose: 200 mls/hr Sodium Chloride (Normal Saline) 1,000 mls @ 125 mls/hr IV ASDIRECTED [facility] Last Admin: 03/25/17 10:47 Dose: 125 mls/hr Sodium Chloride (Normal Saline) 1,000 mls @ 75 mls/hr IV ASDIRECTED [facility] Sodium Chloride (Normal Saline) 1,000 mls @ 75 mls/hr IV ASDIRECTED [facility] Last Admin: 03/26/17 04:42 Dose: 75 mls/hr Magnesium Sulfate 4 gm/ Premix 100 mls @ 50 mls/hr IV ONETIME ONE Stop: 03/26/17 13:11 Last Admin: 03/26/17 11:40 Dose: 50 mls/hr Namenda Xr 28mg Cap (Own Med) 0 cap PO DAILY [facility] Last Admin: 03/24/17 08:29 Dose: 1 cap Potassium Chloride (Klor-Con M20) 40 meq PO ONETIME ONE Stop: 03/24/17 13:30 Last Admin: 03/24/17 13:35 Dose: 40 meq Potassium Chloride (Klor-Con M20) 40 meq PO ONETIME ONE Stop: 03/26/17 08:25 Last Admin: 03/26/17 08:47 Dose: 40 meq Potassium Chloride (Klor-Con M20) 40 meq PO ONETIME ONE Stop: 03/26/17 17:30 Last Admin: 03/26/17 18:07 Dose: 40 meq *Q Meaningful Use (DIS) - VTE *Q VTE Criteria *Q: - Stroke *Q Stroke Criteria *Q: - AMI *Q AMI Criteria *Q:
[2017-03-27 11:27] VITALS: BP 117/58
--- NOTE | 2017-03-29 14:02 | CT ---
EXAM DATE: 03/23/17 PATIENT'S AGE: 86 Patient: RAJENDRA MAC Facility: [place], [place] Site . Site : [id number] Study: CT Abdomen/Pelvis [id number]/19/2017 8:43:44 PM Ordering Physician: Lisa Reyna Final Report: INDICATION: back pain/bacteremia CT ABDOMEN AND PELVIS WITHOUT CONTRAST TECHNIQUE: Multidetector CT imaging was performed through the abdomen and pelvis without intravenous contrast administration. Coronal and sagittal reconstructions were generated. COMPARISON: 01/20/2017 CT abdomen and pelvis. FINDINGS: Lower chest: Mild bibasilar atelectasis and/or scarring, greatest on the right. New trace right pleural effusion. Borderline cardiac enlargement. Liver: Within normal limits. Gallbladder and bile ducts: Status post cholecystectomy, as before. No biliary dilation identified. Pancreas: Unremarkable. Spleen: Normal. Adrenals: No nodules or masses. Kidneys, ureters, and urinary bladder: Unchanged probable right renal cysts. New mild dilation of the right kidney collecting system and proximal right ureter, apparently due to partial obstruction to the distal right ureter by the sigmoid colon inflammatory process described below. Epperson catheter extending into the urinary bladder, which appears collapsed. Gastrointestinal tract: Very large hiatal hernia containing most of the stomach and a portion of the transverse colon, slightly larger than on the previous exam. Normal caliber small bowel without definite wall thickening or obstruction. Appendix not clearly identified. Numerous colonic diverticula. Wall thickening of the sigmoid colon with adjacent fat stranding, consistent with diverticulitis. Poorly defined 5 x 4 x 4 centimeter collection of gas and fluid in the right lower quadrant adjacent to the sigmoid colon (image 109 of series 201 and image 58 of series 203), consistent with a contained perforation or abscess. No generalized free air identified. Vascular structures: Normal caliber abdominal aorta with mild atherosclerotic calcifications. Lymph nodes: No pathologically enlarged nodes identified. Reproductive organs: No pelvic masses. Bones: Spinal degenerative changes. Status post sternotomy. IMPRESSION: 1. Sigmoid colon diverticulitis, complicated by poorly defined 5 centimeter contained perforation or abscess in the right lower quadrant adjacent to the sigmoid colon. 2. Mild right hydronephrosis due to partial obstruction of the distal right ureter by the right lower quadrant inflammatory process. 3. Nonacute additional findings as detailed above. OSMAR DE LA CRUZ MD [employer] Dictated by Frederick De La Cruz MD @ 03/26/2017 9:10:18 PM Dictated by: Frederick De La Cruz MD @ 03/26/2017 21:10:47 (Electronic Signature) MReport Signed by Proxy. [facility]
== END 2017-03-27 11:20 | DRG 392 ==
LOC: UNDOADMIN 17:01 → MW.MS 17:01
PROVIDERS: ADMIT Family Medicine; ATTEND Family Medicine
DX: K57.20 Diverticulitis of large intestine with perforation and abscess without bleeding (principal); N39.0 Urinary tract infection, site not specified; M62.82 Rhabdomyolysis; B96.20 Unspecified Escherichia coli [E. coli] as the cause of diseases classified elsewhere; E03.9 Hypothyroidism, unspecified; G30.9 Alzheimer's disease, unspecified; F02.80 Dementia in other diseases classified elsewhere, unspecified severity, without behavioral disturbance, psychotic disturbance, mood disturbance, and anxiety; E87.6 Hypokalemia; E83.42 Hypomagnesemia; Z79.899 Other long term (current) drug therapy
CPT/HCPCS: 36415; 51703; 71010; 71010-26; 74176; 74176-26; 80048; 82550; 83605; 83735; 85025; 87040; 87077; 87186; 97161-GP; A9270-GY; J0696; J1940; J2543; J3475; J3480; J7040; J7050

== ENCOUNTER → 2017-03-23 | Outpatient (CLI) | payer MEDICARE, BC ==
[2017-03-23 16:03] LABS: CHLORIDE,CL 103 mmol/L (98-110); SODIUM,NA 139 mmol/L (136-146)
--- NOTE | 2017-03-24 10:08 | CR ---
EXAM DATE: 03/23/17 PATIENT'S AGE: 86 Patient: RAJENDRA MAC Facility: [place], [place] Site . Site : [id number] Study: XRay Chest [id number]/16/2017 4:21:46 PM Ordering Physician: Karen Griffiths Final Report: INDICATION: Dyspnea TECHNIQUE: Chest 2 views. COMPARISON: January 20, 2017 FINDINGS: Postoperative changes of median sternotomy. Stable cardiomegaly. There is a large hiatal hernia. The lungs and pleural spaces are clear. No acute osseous abnormality. IMPRESSION: Large hiatal hernia. No lung infiltrate or effusion. Dictated by Brenda Morillo MD @ Mar 23 2017 4:36PM (Electronic Signature) Report Signed by Proxy. [facility]ITAL[facility]
== END ==
LOC: MW.CHRC 14:57
PROVIDERS: ATTEND Family Medicine
DX: R35.0 Frequency of micturition (principal); R06.09 Other forms of dyspnea; K44.9 Diaphragmatic hernia without obstruction or gangrene
CPT/HCPCS: 36415; 71020; 71020-26; 80053; 81001; 84439; 84443; 85025; 86140; 87086; 87088; 87186

== ENCOUNTER 2017-04-23 12:43 | Inpatient (IN) | payer MEDICARE, BC ==
[2017-04-23] MEDS ORDERED: Sodium Chloride 0.9% 2.5 ML Syringe FLUSH PRN (13:01)
[2017-04-23] MEDS ORDERED: Sodium Chloride 0.9% 10 ML Syringe FLUSH PRN (13:01)
[2017-04-23] MEDS ORDERED: Piperacillin/Tazobactam 3.375 GM in Sodium Chloride 0.9% 50 ML IV ONE (13:01)
--- NOTE | 2017-04-23 13:09 | EDM.PDOC ---
ED HPI GENERAL MEDICAL PROBLEM - General Stated Complaint: LETHARGY Time Seen by Provider: 04/23/17 12:57 - History of Present Illness INITIAL COMMENTS - FREE TEXT/NARRATIVE: HISTORY AND PHYSICAL: History of present illness: The patient is 86-year-old female who resides at [facility] and presents with her daughter with increased lethargy that started 24 hours ago but progressed more this morning.. According to the daughter she had a complicated course with an admission here in March for UTI sepsis which then on that admission was discovered that she had diverticulitis with perforation and abscess. At that point she was transferred to [facility] where she had percutaneous drainage of that abscess and a drain was placed which was subsequently removed. According to the daughter the surgeon at [place] did not want to operate and remove the segment of colon because with her dementia and her fragility he was concerned about her recovery. Patient has a known history of dementia coronary artery disease with CABG carotid disease CHF hypothyroidism hypercholesterolemia and hypertension. The daughter states that she is currently on antibiotics and per the paperwork she is on Augmentin orally. She received multiple days of IV antibiotics while admitted. The daughter lives out of state but is here visiting and states that she saw her the last 2 days and she has been noting progressive somnolence and decreased activity and decreased by mouth intake. According to the daughter she was not very talkative or interactive yesterday and seemed to sleep most of the day. Her somnolence continued today and she is arousable by voice but does not follow simple commands. The [employer] reported to us that she was seated going to breakfast and she seemed to slump over and they noted her to be hypotensive and sent her here for evaluation and recommended ambulance transfer but the family declined ambulance transfer and she was brought here by the [place] bus. She cannot offer much history and states yes to all of my questions. The patient, per the history from the [employer], has not had any fevers nausea or vomiting or further systemic complaints are unknown. The daughter states she has not been complaining of anything as she has been sleeping most of the time. I reviewed the admission from March with that transfer. The patient is a known code 3 Review of systems: As per history of present illness and below otherwise all systems reviewed and negative. Past medical history: As per history of present illness and as reviewed below otherwise noncontributory. Surgical history: As per history of present illness and as reviewed below otherwise noncontributory. Social history: No reported history of drug or alcohol abuse. Family history: As per history of present illness and as reviewed below otherwise noncontributory. Physical exam: Gen.: Well-developed well-nourished female who is nontoxic and keeps eyes closed but is arousable by voice and by pain. She does not follow simple commands and only answers yes or no. Vital signs have been reviewed by me. HEENT: Atraumatic, normocephalic, pupils reactive, negative for conjunctival pallor or scleral icterus, mucous membranes moist tachycardia Lungs: Clear to auscultation with an occasional crackle and coarse breath sounds but diminished breath sounds throughout and poor effort overall, breath sounds equal bilaterally, chest nontender. Heart: S1S2, regular rhythm but bradycardic in the 50s on my evaluation and no overt murmur but heart sounds are very distant Abdomen: Soft, nondistended, bowel sounds are hypoactive and there is some mild tenderness to palpation of the right lower quadrant without rebound or guarding Negative for masses or hepatosplenomegaly. Pelvis: Stable nontender. Genitourinary: Deferred. Rectal: Deferred. Patient had stool in her depends at the time of our evaluation and it was light brown in color without any blood Extremities: Atraumatic, there is no pedal edema Neurovascular unremarkable. Neuro: Awake to voice and painful stimuli but is not verbal other than saying yes or no to simple questions and is not cooperative with exam. Patient has diffuse weakness but formal assessment is difficult due to lack of patient interaction Exam nonfocal. Skin: Turgor appears to be slightly diminished and she is overall pale but she is not cool or diaphoretic. Diagnostics: EKG CBC CMP BNP INR lactic acid troponin UA urine culture blood cultures [address] scan of the head abdomen and pelvis chest x-ray Therapeutics: IV O2 monitor IV fluids antibiotics Please note that hemoglobin from today was compared to several hemoglobins done back in March and she normally runs from 9-10 at a baseline. 1420: Dr Galvez was called to come and see the patient when he is available from clinic and he has arrived here at 1503 and is currently seeing the patient. He is aware that the patient is put out very little urine output despite 2 L of IV fluids and he is currently recommending dopamine to be titrated. I have already contacted ultrasound for a bedside 2-D echo. 1455: Case was discussed with Dr. Browning our hospitalist who will come in to see the patient 1540: Dr. Browning is a bedside as is Dr. Galvez and the echo is being performed. Dr. Browning would like vancomycin to be given which I have ordered. We will collectively decide disposition of this patient and dopamine is being titrated upward for blood pressure and pulse 1651: Decision was made that we would transfer the patient and the case was discussed with the ER physician at [facility] Dr. Christina. After my discussion with him Dr. Nallely Galvez and myself started having discussions with the family about whether or not they wanted to defer the transfer as this would involve much more invasive care and treatment or want to stay here for comfort measures IV fluids and meds. They're currently discussing this and making a decision. Flight team is here awaiting this decision. 1605: Systolic blood pressure is 85 with a heart rate in the high 50s on 7.5 mics of dopamine. We will continue to titrate. 1610: Family has discussed amongst themselves the care plan and they have opted for no transfer and admission here to our hospital with care under the hospitalist. Critical care time excluding procedures:35min Impression: Persistent hypotension/dehydration/rule out sepsis with altered mental status and history of same Definitive disposition and diagnosis as appropriate pending reevaluation and review of above. - Related Data Allergies Allergy/AdvReac Type Severity Reaction Status Date / Time atorvastatin Allergy Other Verified 04/23/17 13:12 cefazolin Allergy Other Verified 04/23/17 13:12 hydromorphone Allergy Other Verified 04/23/17 13:12 iodine Allergy Other Verified 04/23/17 13:12 nitroglycerin Allergy Other Verified 04/23/17 13:12 Penicillins Allergy Other Verified 04/23/17 13:12 sulfamethizole Allergy Other Verified 04/23/17 13:12 tiotropium Allergy Other Verified 04/23/17 13:12 morphine Allergy Other Uncoded 03/24/17 18:44 Home Meds: Home Meds Aspirin 81 mg PO DAILY 03/23/17 [History] Clopidogrel Bisulfate [Clopidogrel] 75 mg PO DAILY 03/23/17 [History] Levothyroxine Sodium [Levo-T] 25 mcg PO ACBREAKFAST 03/23/17 [History] Memantine HCl [Namenda Xr] 28 mg PO DAILY 03/23/17 [History] Sertraline HCl [Zoloft] 100 mg PO DAILY 03/23/17 [History] Acetaminophen 650 mg PO Q6H PRN 04/23/17 [History] Amoxicillin/Potassium Clav [Augmentin 875-125 Tablet] 1 tab PO BID 04/23/17 [ History] Furosemide 20 mg PO BID 04/23/17 [History] Metoprolol Tartrate 25 mg PO BID 04/23/17 [History] Oxybutynin 5 mg PO BID 04/23/17 [History] Potassium Chloride [Klor-Con 10] 20 meq PO TIDMEALS 04/23/17 [History] Simvastatin [Zocor] 20 mg PO BEDTIME 04/23/17 [History] Past Medical History HEENT History: Reports: Hard of Hearing, Impaired Vision 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 Respiratory History: Reports: None Gastrointestinal History: Reports: Hiatal Hernia Neurological History: Reports: Alzheimers Disease Endocrine/Metabolic History: Reports: Hypothyroidism - Infectious Disease History Infectious Disease History: Reports: Chicken Pox, Measles, Mumps Social & Family History - Family History Family Medical History: Noncontributory - Tobacco Use Smoking Status *Q: Former Smoker Second Hand Smoke Exposure: No - Caffeine Use Caffeine Use: Reports: Coffee - Recreational Drug Use Recreational Drug Use: No ED ROS GENERAL - Review of Systems Review Of Systems: ROS reveals no pertinent complaints other than HPI. ED EXAM, GENERAL - Physical Exam Exam: See Below (See dictation) Course - Vital Signs Last Recorded V/S: Last Vital Signs Temp 35.2 C L 04/23/17 13:05 Pulse 54 L 04/23/17 16:07 Resp 12 04/23/17 16:17 BP 78/36 L 04/23/17 16:17 Pulse Ox 96 04/23/17 16:17 - Orders/Labs/Meds Orders: Active Orders 24 hr Category Date Time Status Patient Status [ADT] Stat ADT 04/23/17 16:23 Ordered Blood Glucose Check, Bedside [RC] ONETIME Care 04/23/17 13:00 Active Cardiac Monitoring [RC] . DIRECTED Care 04/23/17 12:59 Active EKG Documentation Completion [RC] STAT Care 04/23/17 12:59 Active Notify Provider Consults [RC] ASDIRECTED Care 04/23/17 16:12 Active Oxygen Therapy, ED [RC] ASDIRECTED Care 04/23/17 12:59 Active Pulse Oximetry [RC] ASDIRECTED Care 04/23/17 12:59 Active Consult to Physician [CONS] Stat Cons 04/23/17 16:11 Active Abdomen Pelvis wo Cont [CT] Stat Exams 04/23/17 13:01 Taken Chest 1V Frontal [CR] Stat Exams 04/23/17 13:09 Taken Echo Comp wo Cont [US] Stat Exams 04/23/17 14:59 Ordered Head wo Cont [CT] Stat Exams 04/23/17 13:01 Taken CULTURE BLOOD [BC] Stat Lab 04/23/17 13:20 Received CULTURE BLOOD [BC] Stat Lab 04/23/17 13:29 Received CULTURE URINE [RM] Stat Lab 04/23/17 13:10 Received DOPamine/Dextrose 5%-Water [DOPamine in D5W 400 MG/250 Med 04/23/17 15:15 Active ML] 400 mg in 250 ml IV TITRATE Sodium Chloride 0.9% [Normal Saline] 1,000 ml Med 04/23/17 16:30 Active IV ASDIRECTED Sodium Chloride 0.9% [Saline Flush] Med 04/23/17 13:01 Active 10 ml FLUSH ASDIRECTED PRN Sodium Chloride 0.9% [Saline Flush] Med 04/23/17 13:01 Active 2.5 ml FLUSH ASDIRECTED PRN Vancomycin [Vancocin] 1 gm Med 04/23/17 15:46 Active Sodium Chloride 0.9% [Normal Saline] 250 ml IV ONETIME Blood Culture x2 Reflex Set [OM.PC] Stat Oth 04/23/17 13:00 Ordered Saline Lock Insert [OM.PC] Stat Oth 04/23/17 12:59 Ordered Medication Orders Dopamine HCl/Dextrose (Dopamine In D5w 400 Mg/250 Ml) 400 mg in 250 mls @ 14.458 mls/hr IV TITRATE MARI; 5 MCG/KG/MIN PRN Reason: Protocol Last Admin: 04/23/17 15:24 Dose: 5 mcg/kg/min, 14.458 mls/hr Vancomycin HCl 1 gm/ Sodium (Chloride) 250 mls @ 250 mls/hr IV ONETIME ONE Stop: 04/23/17 16:45 Sodium Chloride (Normal Saline) 1,000 mls @ 125 mls/hr IV ASDIRECTED MARI Sodium Chloride (Saline Flush) 10 ml FLUSH ASDIRECTED PRN PRN Reason: Keep Vein Open Last Admin: 04/23/17 13:32 Dose: 10 ml Sodium Chloride (Saline Flush) 2.5 ml FLUSH ASDIRECTED PRN PRN Reason: Keep Vein Open Last Admin: 04/23/17 13:32 Dose: 2.5 ml Labs: Laboratory Tests 04/23/17 04/23/17 04/23/17 Range/Units 12:52 12:52 12:52 WBC (4.0-11.0) K/uL RBC (4.30-5.90) M/uL Hgb (12.0-16.0) g/dL Hct (36.0-46.0) % MCV (80.0-98.0) fL MCH (27.0-32.0) pg MCHC (31.0-37.0) g/dL RDW Std Deviation (28.0-62.0) fl RDW Coeff of Homer (11.0-15.0) % Plt Count (150-400) K/uL MPV (7.40-12.00) fL Neut % (Auto) (48.0-80.0) % Lymph % (Auto) (16.0-40.0) % [place] % (Auto) (0.0-15.0) % Eos % (Auto) (0.0-7.0) % Baso % (Auto) (0.0-1.5) % Neut # (Auto) (1.4-5.7) K/uL Lymph # (Auto) (0.6-2.4) K/uL [place] # (Auto) (0.0-0.8) K/uL Eos # (Auto) (0.0-0.7) K/uL Baso # (Auto) (0.0-0.1) K/uL Nucleated RBC % /100WBC Nucleated RBCs # K/uL INR 1.03 (0.86-1.11) ABG pH (7.35-7.45) ABG pCO2 (35-45) mmHG ABG pO2 (75-100) mmHG ABG HCO3 (22-26) mEq/L ABG Total CO2 ABG Base Excess (-2.0-2.0) Lactate 3.7 H (0.20-2.00) mmol/L Sodium 136 (136-146) mmol/L Potassium 5.1 (3.5-5.1) mmol/L Chloride 103 (98-110) mmol/L Carbon Dioxide 17 L (21-31) mmol/L BUN 14 (6.0-23.0) mg/dL Creatinine 1.2 (0.6-1.5) mg/dL Est Cr Clr Drug Dosing 28.23 mL/min Estimated GFR (MDRD) 42.8 ml/min Glucose 189 H (60-110) mg/dL POC Glucose (60-110) mg/dL Calcium 9.0 (8.8-10.8) mg/dL Total Bilirubin 0.4 (0.1-1.5) mg/dL AST 34 (5-40) IU/L ALT 24 (8-54) IU/L Alkaline Phosphatase 69 (40-150) Creatine Kinase (9-236) IU/L Troponin I (0.0-0.29) NG/ML C-Reactive Protein (0.0-0.5) mg/dL B-Natriuretic Peptide (<100) PG/ML Total Protein 7.2 (6.0-8.0) g/dL Albumin 3.2 L (3.4-4.8) g/dL Globulin 4.0 H (2.0-3.5) g/dL Albumin/Globulin Ratio 0.8 L (1.3-2.8) Urine Color Urine Appearance Urine pH (5.0-8.0) Ur Specific [place] (1.001-1.035) Urine Protein (NEGATIVE) mg/dL Urine Glucose (UA) (NEGATIVE) mg/dL Urine Ketones (NEGATIVE) mg/dL Urine Occult Blood (NEGATIVE) Urine Nitrite (NEGATIVE) Urine Bilirubin (NEGATIVE) Urine Urobilinogen (<2.0) EU/dL Ur Leukocyte Esterase (NEGATIVE) Urine RBC (0-2/HPF) Urine WBC (0-5/HPF) Ur Epithelial Cells (NONE-FEW) Amorphous Sediment (NEGATIVE) Urine Bacteria (NEGATIVE) Urine Mucus (NONE-MOD) Urine Yeast 04/23/17 04/23/17 04/23/17 Range/Units 12:52 12:52 12:52 WBC (4.0-11.0) K/uL RBC (4.30-5.90) M/uL Hgb (12.0-16.0) g/dL Hct (36.0-46.0) % MCV (80.0-98.0) fL MCH (27.0-32.0) pg MCHC (31.0-37.0) g/dL RDW Std Deviation (28.0-62.0) fl RDW Coeff of [place] (11.0-15.0) % Plt Count (150-400) K/uL MPV (7.40-12.00) fL Neut % (Auto) (48.0-80.0) % Lymph % (Auto) (16.0-40.0) % [place] % (Auto) (0.0-15.0) % Eos % (Auto) (0.0-7.0) % Baso % (Auto) (0.0-1.5) % Neut # (Auto) (1.4-5.7) K/uL Lymph # (Auto) (0.6-2.4) K/uL [place] # (Auto) (0.0-0.8) K/uL Eos # (Auto) (0.0-0.7) K/uL Baso # (Auto) (0.0-0.1) K/uL Nucleated RBC % /100WBC Nucleated RBCs # K/uL INR (0.86-1.11) ABG pH (7.35-7.45) ABG pCO2 (35-45) mmHG ABG pO2 (75-100) mmHG ABG HCO3 (22-26) mEq/L ABG Total CO2 ABG Base Excess (-2.0-2.0) Lactate (0.20-2.00) mmol/L Sodium (136-146) mmol/L Potassium (3.5-5.1) mmol/L Chloride (98-110) mmol/L Carbon Dioxide (21-31) mmol/L BUN (6.0-23.0) mg/dL Creatinine (0.6-1.5) mg/dL Est Cr Clr Drug Dosing mL/min Estimated GFR (MDRD) ml/min Glucose (60-110) mg/dL POC Glucose (60-110) mg/dL Calcium (8.8-10.8) mg/dL Total Bilirubin (0.1-1.5) mg/dL AST (5-40) IU/L ALT (8-54) IU/L Alkaline Phosphatase (40-150) Creatine Kinase 32 (9-236) IU/L Troponin I < 0.10 (0.0-0.29) NG/ML C-Reactive Protein 0.48 (0.0-0.5) mg/dL B-Natriuretic Peptide 494 H (<100) PG/ML Total Protein (6.0-8.0) g/dL Albumin (3.4-4.8) g/dL Globulin (2.0-3.5) g/dL Albumin/Globulin Ratio (1.3-2.8) Urine Color Urine Appearance Urine pH (5.0-8.0) Ur Specific [place] (1.001-1.035) Urine Protein (NEGATIVE) mg/dL Urine Glucose (UA) (NEGATIVE) mg/dL Urine Ketones (NEGATIVE) mg/dL Urine Occult Blood (NEGATIVE) Urine Nitrite (NEGATIVE) Urine Bilirubin (NEGATIVE) Urine Urobilinogen (<2.0) EU/dL Ur Leukocyte Esterase (NEGATIVE) Urine RBC (0-2/HPF) Urine WBC (0-5/HPF) Ur Epithelial Cells (NONE-FEW) Amorphous Sediment (NEGATIVE) Urine Bacteria (NEGATIVE) Urine Mucus (NONE-MOD) Urine Yeast 04/23/17 04/23/17 04/23/17 Range/Units 13:06 13:10 13:20 WBC 6.06 (4.0-11.0) K/uL RBC 3.58 L (4.30-5.90) M/uL Hgb 9.9 L (12.0-16.0) g/dL Hct 32.4 L (36.0-46.0) % MCV 90.5 (80.0-98.0) fL MCH 27.7 (27.0-32.0) pg MCHC 30.6 L (31.0-37.0) g/dL RDW Std Deviation 68.8 H (28.0-62.0) fl RDW Coeff of [place] 21 H (11.0-15.0) % Plt Count 133 L (150-400) K/uL MPV 9.90 (7.40-12.00) fL Neut % (Auto) 63.1 (48.0-80.0) % Lymph % (Auto) 25.6 (16.0-40.0) % [place] % (Auto) 8.7 (0.0-15.0) % Eos % (Auto) 2.1 (0.0-7.0) % Baso % (Auto) 0.5 (0.0-1.5) % Neut # (Auto) 3.8 (1.4-5.7) K/uL Lymph # (Auto) 1.6 (0.6-2.4) K/uL [place] # (Auto) 0.5 (0.0-0.8) K/uL Eos # (Auto) 0.1 (0.0-0.7) K/uL Baso # (Auto) 0.0 (0.0-0.1) K/uL Nucleated RBC % 0.0 /100WBC Nucleated RBCs # 0 K/uL INR (0.86-1.11) ABG pH (7.35-7.45) ABG pCO2 (35-45) mmHG ABG pO2 (75-100) mmHG ABG HCO3 (22-26) mEq/L ABG Total CO2 ABG Base Excess (-2.0-2.0) Lactate (0.20-2.00) mmol/L Sodium (136-146) mmol/L Potassium (3.5-5.1) mmol/L Chloride (98-110) mmol/L Carbon Dioxide (21-31) mmol/L BUN (6.0-23.0) mg/dL Creatinine (0.6-1.5) mg/dL Est Cr Clr Drug Dosing mL/min Estimated GFR (MDRD) ml/min Glucose (60-110) mg/dL POC Glucose 319 H (60-110) mg/dL Calcium (8.8-10.8) mg/dL Total Bilirubin (0.1-1.5) mg/dL AST (5-40) IU/L ALT (8-54) IU/L Alkaline Phosphatase (40-150) Creatine Kinase (9-236) IU/L Troponin I (0.0-0.29) NG/ML C-Reactive Protein (0.0-0.5) mg/dL B-Natriuretic Peptide (<100) PG/ML Total Protein (6.0-8.0) g/dL Albumin (3.4-4.8) g/dL Globulin (2.0-3.5) g/dL Albumin/Globulin Ratio (1.3-2.8) Urine Color YELLOW Urine Appearance CLEAR Urine pH 5.0 (5.0-8.0) Ur Specific [place] 1.015 (1.001-1.035) Urine Protein NEGATIVE (NEGATIVE) mg/dL Urine Glucose (UA) NEGATIVE (NEGATIVE) mg/dL Urine Ketones NEGATIVE (NEGATIVE) mg/dL Urine Occult Blood TRACE-INTACT (NEGATIVE) Urine Nitrite NEGATIVE (NEGATIVE) Urine Bilirubin NEGATIVE (NEGATIVE) Urine Urobilinogen 0.2 (<2.0) EU/dL Ur Leukocyte Esterase NEGATIVE (NEGATIVE) Urine RBC 0-1 (0-2/HPF) Urine WBC 2-3 (0-5/HPF) Ur Epithelial Cells OCCASIONAL (NONE-FEW) Amorphous Sediment LIGHT (NEGATIVE) Urine Bacteria FEW (NEGATIVE) Urine Mucus NOT SEEN (NONE-MOD) Urine Yeast FEW 04/23/17 Range/Units 13:30 WBC (4.0-11.0) K/uL RBC (4.30-5.90) M/uL Hgb (12.0-16.0) g/dL Hct (36.0-46.0) % MCV (80.0-98.0) fL MCH (27.0-32.0) pg MCHC (31.0-37.0) g/dL RDW Std Deviation (28.0-62.0) fl RDW Coeff of [place] (11.0-15.0) % Plt Count (150-400) K/uL MPV (7.40-12.00) fL Neut % (Auto) (48.0-80.0) % Lymph % (Auto) (16.0-40.0) % [place] % (Auto) (0.0-15.0) % Eos % (Auto) (0.0-7.0) % Baso % (Auto) (0.0-1.5) % Neut # (Auto) (1.4-5.7) K/uL Lymph # (Auto) (0.6-2.4) K/uL [place] # (Auto) (0.0-0.8) K/uL Eos # (Auto) (0.0-0.7) K/uL Baso # (Auto) (0.0-0.1) K/uL Nucleated RBC % /100WBC Nucleated RBCs # K/uL INR (0.86-1.11) ABG pH 7.371 (7.35-7.45) ABG pCO2 40 (35-45) mmHG ABG pO2 139 H (75-100) mmHG ABG HCO3 23 (22-26) mEq/L ABG Total CO2 21.8 ABG Base Excess -2.1 L (-2.0-2.0) Lactate (0.20-2.00) mmol/L Sodium (136-146) mmol/L Potassium (3.5-5.1) mmol/L Chloride (98-110) mmol/L Carbon Dioxide (21-31) mmol/L BUN (6.0-23.0) mg/dL Creatinine (0.6-1.5) mg/dL Est Cr Clr Drug Dosing mL/min Estimated GFR (MDRD) ml/min Glucose (60-110) mg/dL POC Glucose (60-110) mg/dL Calcium (8.8-10.8) mg/dL Total Bilirubin (0.1-1.5) mg/dL AST (5-40) IU/L ALT (8-54) IU/L Alkaline Phosphatase (40-150) Creatine Kinase (9-236) IU/L Troponin I (0.0-0.29) NG/ML C-Reactive Protein (0.0-0.5) mg/dL B-Natriuretic Peptide (<100) PG/ML Total Protein (6.0-8.0) g/dL Albumin (3.4-4.8) g/dL Globulin (2.0-3.5) g/dL Albumin/Globulin Ratio (1.3-2.8) Urine Color Urine Appearance Urine pH (5.0-8.0) Ur Specific [place] (1.001-1.035) Urine Protein (NEGATIVE) mg/dL Urine Glucose (UA) (NEGATIVE) mg/dL Urine Ketones (NEGATIVE) mg/dL Urine Occult Blood (NEGATIVE) Urine Nitrite (NEGATIVE) Urine Bilirubin (NEGATIVE) Urine Urobilinogen (<2.0) EU/dL Ur Leukocyte Esterase (NEGATIVE) Urine RBC (0-2/HPF) Urine WBC (0-5/HPF) Ur Epithelial Cells (NONE-FEW) Amorphous Sediment (NEGATIVE) Urine Bacteria (NEGATIVE) Urine Mucus (NONE-MOD) Urine Yeast Meds: Medications Generic Name Dose Route Start Last Admin Trade Name Freq PRN Reason Stop Dose Admin Dopamine HCl/Dextrose 400 mg in 250 mls @ 14.458 mls/hr 04/23/17 15:15 15:24 Dopamine In D5w 400 Mg/250 Ml IV 5 mcg/kg/min TITRATE MARI 14.458 mls/hr Protocol Administration 5 MCG/KG/MIN Vancomycin HCl 1 gm/ Sodium 250 mls @ 250 mls/hr 04/23/17 15:46 Chloride IV 04/23/17 16:45 ONETIME ONE Sodium Chloride 1,000 mls @ 125 mls/hr 04/23/17 16:30 Normal Saline IV ASDIRECTED MARI Sodium Chloride 10 ml 04/23/17 13:01 04/23/17 13:32 Saline Flush FLUSH 10 ml ASDIRECTED PRN Administration Keep Vein Open Sodium Chloride 2.5 ml 04/23/17 13:01 04/23/17 13:32 Saline Flush FLUSH 2.5 ml ASDIRECTED PRN Administration Keep Vein Open Discontinued Medications Generic Name Dose Route Start Last Admin Trade Name Freq PRN Reason Stop Dose Admin Piperacillin Sod/Tazobactam 50 mls @ 100 mls/hr 04/23/17 13:01 04/23/17 13:23 Sod 3.375 gm/ Sodium Chloride IV 04/23/17 13:30 100 mls/hr ONETIME ONE Administration Sodium Chloride 1,000 mls @ 999 mls/hr 04/23/17 13:01 04/23/17 14:51 Normal Saline IV 04/23/17 14:01 999 mls/hr STAT ONE Administration Departure - Departure Time of Disposition: 16:28 Disposition: Admitted As Inpatient 68 Condition: Critical Clinical Impression: Hypotension Qualifiers: Hypotension type: unspecified hypotension type Qualified Code(s): I95.9 - Hypotension, unspecified Sepsis Qualifiers: Sepsis type: sepsis due to unspecified organism Qualified Code(s): A41.9 - Sepsis, unspecified organism - Discharge Information - My Orders Last 24 Hours: My Active Orders 04/23/17 12:59 Cardiac Monitoring [RC] . DIRECTED EKG Documentation Completion [RC] STAT Oxygen Therapy, ED [RC] ASDIRECTED Pulse Oximetry [RC] ASDIRECTED Saline Lock Insert [OM.PC] Stat 04/23/17 13:00 Blood Glucose Check, Bedside [RC] ONETIME Blood Culture x2 Reflex Set [OM.PC] Stat 04/23/17 13:01 Abdomen Pelvis wo Cont [CT] Stat Head wo Cont [CT] Stat Sodium Chloride 0.9% [Saline Flush] 10 ml FLUSH ASDIRECTED PRN Sodium Chloride 0.9% [Saline Flush] 2.5 ml FLUSH ASDIRECTED PRN 04/23/17 13:09 Chest 1V Frontal [CR] Stat 04/23/17 13:10 CULTURE URINE [RM] Stat 04/23/17 13:20 CULTURE BLOOD [BC] Stat 04/23/17 13:29 CULTURE BLOOD [BC] Stat 04/23/17 14:59 Echo Comp wo Cont [US] Stat 04/23/17 15:15 DOPamine/Dextrose 5%-Water [DOPamine in D5W 400 MG/250 ML] 400 mg in 250 ml IV TITRATE 04/23/17 15:46 Vancomycin [Vancocin] 1 gm Sodium Chloride 0.9% [Normal Saline] 250 ml IV ONETIME 04/23/17 16:11 Consult to Physician [CONS] Stat 04/23/17 16:12 Notify Provider Consults [RC] ASDIRECTED 04/23/17 16:23 Patient Status [ADT] Stat - Assessment/Plan Last 24 Hours: My Active Orders 04/23/17 12:59 Cardiac Monitoring [RC] . DIRECTED EKG Documentation Completion [RC] STAT Oxygen Therapy, ED [RC] ASDIRECTED Pulse Oximetry [RC] ASDIRECTED Saline Lock Insert [OM.PC] Stat 04/23/17 13:00 Blood Glucose Check, Bedside [RC] ONETIME Blood Culture x2 Reflex Set [OM.PC] Stat 04/23/17 13:01 Abdomen Pelvis wo Cont [CT] Stat Head wo Cont [CT] Stat Sodium Chloride 0.9% [Saline Flush] 10 ml FLUSH ASDIRECTED PRN Sodium Chloride 0.9% [Saline Flush] 2.5 ml FLUSH ASDIRECTED PRN 04/23/17 13:09 Chest 1V Frontal [CR] Stat 04/23/17 13:10 CULTURE URINE [RM] Stat 04/23/17 13:20 CULTURE BLOOD [BC] Stat 04/23/17 13:29 CULTURE BLOOD [BC] Stat 04/23/17 14:59 Echo Comp wo Cont [US] Stat 04/23/17 15:15 DOPamine/Dextrose 5%-Water [DOPamine in D5W 400 MG/250 ML] 400 mg in 250 ml IV TITRATE 04/23/17 15:46 Vancomycin [Vancocin] 1 gm Sodium Chloride 0.9% [Normal Saline] 250 ml IV ONETIME 04/23/17 16:11 Consult to Physician [CONS] Stat 04/23/17 16:12 Notify Provider Consults [RC] ASDIRECTED 04/23/17 16:23 Patient Status [ADT] Stat
[2017-04-23] MEDS: Sodium Chloride 0.9% 1,000 ML IV ONE ×3 (13:24→14:51)
[2017-04-23] MEDS ORDERED: DOPamine/Dextrose 5%-Water 400 MG/250 ML BAG IV SCH (15:15)
[2017-04-23] MEDS ORDERED: Sodium Chloride 0.9% 1,000 ML IV SCH (16:30)
[2017-04-23] MEDS ORDERED: Calcium Carbonate 500 MG Tab.Chew PO PRN (18:14)
--- NOTE | 2017-04-23 18:25 | CT ---
EXAM DATE: 04/23/17 PATIENT'S AGE: 86 Patient: RAJENDRA MAC Facility: [place], [place] Site . Site : 1930 Study: CT Head [id number]/16/2017 2:07:36 PM Ordering Physician: Zoe Orlando Final Report: INDICATION: pain CT HEAD WITHOUT CONTRAST TECHNIQUE: Multiple axial CT images were performed through the head without intravenous contrast administration. COMPARISON: 01/20/[address] FINDINGS: No acute intracranial hemorrhage is identified. No extra-axial collections are evident and there is no mass effect or midline shift. There is mild diffuse age-related brain atrophy, similar to the previous exam. Ventricular size and configuration are within normal limits for the patient`s age. Mina-white differentiation is within normal limits. There is unchanged patchy hypodensity in the periventricular white matter, a nonspecific finding which most likely reflects chronic small vessel ischemic change. Intracranial atherosclerotic vascular calcifications are noted. Osseous structures are within normal limits and no fractures are seen. Included portions of the paranasal sinuses and mastoid air cells are normally aerated aside from a small amount of fluid or debris in the sphenoid sinus which is slightly increased from before. IMPRESSION: 1. No acute intracranial abnormality identified. 2. Age-related brain atrophy, white matter hypodensity consistent with chronic small vessel ischemic change, and intracranial atherosclerotic vascular calcifications. OSMAR DE LA CRUZ MD [employer] Dictated by Frederick De La Cruz MD @ 04/23/2017 2:51:29 PM Dictated by: Frederick De La Cruz MD @ 04/23/2017 14:52:28 (Electronic Signature) Report Signed by Proxy. [facility]
--- NOTE | 2017-04-23 18:26 | CT ---
EXAM DATE: 04/23/17 PATIENT'S AGE: 86 Patient: RAJENDRA MAC Facility: [place], [place] Site . Site : 1930 Study: CT Abdomen/Pelvis [id number]/16/2017 2:08:22 PM Ordering Physician: Zoe Orlando Final Report: INDICATION: pain CT ABDOMEN AND PELVIS WITHOUT CONTRAST TECHNIQUE: Multidetector CT imaging was performed through the abdomen and pelvis without intravenous contrast administration. Coronal and sagittal reconstructions were generated. COMPARISON: 03/26/2017 CT abdomen and pelvis. FINDINGS: Lower chest: Mild bibasilar atelectasis or scarring, greatest on the right, similar to the previous exam. Mild cardiomegaly. Liver: Within normal limits. Gallbladder and bile ducts: Status post cholecystectomy as before. No biliary dilation identified. Pancreas: Unremarkable. Spleen: Normal. Adrenals: No nodules or masses. Kidneys, ureters, and urinary bladder: No urinary tract stones or hydronephrosis. Previously seen right hydronephrosis has resolved. Unchanged right renal hypodensities likely representing cortical cysts. Epperson catheter extending into the urinary bladder which is collapsed. Gastrointestinal tract: No significant change in very large hiatal hernia containing most of the stomach and part of the transverse colon. No evidence of bowel obstruction. Appendix not identified. Numerous colonic diverticula. Improvement in previously seen findings of sigmoid colon diverticulitis. Previously seen poorly defined gas and fluid collection along side the mid sigmoid colon appears smaller, currently measuring approximately 4 x 3 x 3 centimeters compared to 5 x 4 x 4 centimeters previously. Surrounding inflammatory fat stranding has decreased. Vascular structures: Iliac atherosclerotic calcifications. Peritoneum: No free air, abscess, or significant free fluid. Lymph nodes: No pathologically enlarged nodes identified. Reproductive organs: No pelvic masses. Bones: Mild spinal degenerative changes. Prior sternotomy. IMPRESSION: 1. Improvement in previously seen sigmoid colon diverticulitis. Decreased size, but not complete resolution, of gas and fluid collection adjacent to the sigmoid colon consistent with an abscess or contained perforation. 2. Resolution of previously seen right hydronephrosis. 3. Unchanged very large hiatal hernia containing most of the stomach and part of the transverse colon. No bowel obstruction. 4. Nonacute additional findings as detailed above. OSMAR DE LA CRUZ MD [employer] Dictated by Frederick De La Cruz MD @ 04/23/2017 2:47:02 PM Dictated by: Frederick De La Cruz MD @ 04/23/2017 14:47:37 (Electronic Signature) Report Signed by Proxy. [facility]
--- NOTE | 2017-04-23 18:27 | CR ---
EXAM DATE: 04/23/17 PATIENT'S AGE: 86 Patient: RAJENDRA MAC Facility: [place], [place] Site . Site : 1930 Study: XRay Chest [id number]/16/2017 2:18:46 PM Ordering Physician: Zoe Orlando Final Report: INDICATION: Chest pain. Shortness of breath. COMPARISON: 03/25/2017. FINDINGS/IMPRESSION: No definite acute pulmonary infiltrates. Unchanged mild cardiomegaly. Stable upper normal pulmonary vasculature. No pleural effusions. Status post median sternotomy. Large retrocardiac and right-sided hiatal hernia, slightly larger than before and containing less gas than previously. Diffuse osteopenia. Dictated by Frederick Soto MD @ 04/23/2017 2:33:11 PM Dictated by: Frederick Soto MD @ 04/23/2017 14:34:09 (Electronic Signature) Report Signed by Proxy. [facility]
[2017-04-23] MEDS ORDERED: Piperacillin/Tazobactam 3.375 GM in Sodium Chloride 0.9% 50 ML IV SCH (19:00)
--- NOTE | 2017-04-23 19:27 | PCM.HP ---
H&P History of Present Illness - General Admit Problem/Dx: Admission Diagnosis/Problem Admission Diagnosis/Problem Hypotension - History of Present Illness Initial Comments - Free Text/Narative: 86 yo female with pmh of cardiomyopathy who had recent hospitalization in [place] for diverticultis with abscess. Due to dementia she has had difficulty with completing treatment as she has pulled out the drain and PICC lines that were being used for treatment of her abdominal abscess. It was decided to treat her diverticultis with oral antibiotics rather than replace lines and drains. Patient had been residing at [facility] since discharge. Over the past several days family has reported increased lethargy. Nurses reported patient slumped over at her meal today. She was sent to the ED in [place] where she was noted to be hypotensive. She was started on a dopamine drip due to her low blood pressures in the ED. Repeat CT scan of abdomen reports improvement of diverticulitis and size of abscess. - Related Data Allergies/Adverse Reactions: Allergies Allergy/AdvReac Type Severity Reaction Status Date / Time atorvastatin Allergy Other Verified 04/23/17 13:12 cefazolin Allergy Other Verified 04/23/17 13:12 hydromorphone Allergy Other Verified 04/23/17 13:12 iodine Allergy Other Verified 04/23/17 13:12 nitroglycerin Allergy Other Verified 04/23/17 13:12 Penicillins Allergy Other Verified 04/23/17 13:12 sulfamethizole Allergy Other Verified 04/23/17 13:12 tiotropium Allergy Other Verified 04/23/17 13:12 morphine Allergy Other Uncoded 03/24/17 18:44 Home Medications: Home Meds Aspirin 81 mg PO DAILY 03/23/17 [History] Clopidogrel Bisulfate [Clopidogrel] 75 mg PO DAILY 03/23/17 [History] Levothyroxine Sodium [Levo-T] 25 mcg PO ACBREAKFAST 03/23/17 [History] Memantine HCl [Namenda Xr] 28 mg PO DAILY 03/23/17 [History] Sertraline HCl [Zoloft] 100 mg PO DAILY 03/23/17 [History] Acetaminophen 650 mg PO Q6H PRN 04/23/17 [History] Amoxicillin/Potassium Clav [Augmentin 875-125 Tablet] 1 tab PO BID 04/23/17 [ History] Furosemide 20 mg PO BID 04/23/17 [History] Metoprolol Tartrate 25 mg PO BID 04/23/17 [History] Oxybutynin 5 mg PO BID 04/23/17 [History] Potassium Chloride [Klor-Con 10] 20 meq PO TIDMEALS 04/23/17 [History] Simvastatin [Zocor] 20 mg PO BEDTIME 04/23/17 [History] Past Medical History HEENT History: Reports: Hard of Hearing, Impaired Vision 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 Respiratory History: Reports: None Gastrointestinal History: Reports: Hiatal Hernia Genitourinary History: Reports: Urinary Incontinence [employer] History: Reports: Neurological History: Reports: Alzheimers Disease Psychiatric History: Reports: Alzheimers Disease, Depression Endocrine/Metabolic History: Reports: Hypothyroidism - Infectious Disease History Infectious Disease History: Reports: Chicken Pox, Measles, Mumps Social & Family History - Family History Family Medical History: Noncontributory - Tobacco Use Smoking Status *Q: Never Smoker Second Hand Smoke Exposure: No - Caffeine Use Caffeine Use: Reports: Coffee - Recreational Drug Use Recreational Drug Use: No H&P Review of Systems - Review of Systems: Review Of Systems: Unable To Obtain Exam - Exam Exam: See Below - Vital Signs Vital Signs: Last Vital Signs Temp 35.7 C 04/23/17 16:45 Pulse 58 L 04/23/17 17:44 Resp 11 L 04/23/17 17:20 BP 81/34 L 04/23/17 17:44 Pulse Ox 98 04/23/17 17:44 Weight: 78.5 kg - Exam General: Lethargic Lungs: Clear to Auscultation, Normal Respiratory Effort Cardiovascular: Regular Rate, Regular Rhythm Abdomen: Soft. No: Distention, Tenderness Extremities: Normal Inspection Skin: Warm, Dry, Intact - Patient Data Result Diagrams: 04/24/17 10:58 04/24/17 10:58 *Q Meaningful Use (ADM) - VTE *Q VTE Criteria *Q: - VTE Risk Assess *Q Other Thrombophilia Type: with history of sepsis - Stroke *Q Stroke Criteria *Q: - AMI *Q AMI Criteria *Q: Problem List Initiated/Reviewed/Updated: Yes Orders Last 24hrs: Active Orders 24 hr Category Date Time Status Acetaminophen [Tylenol] Med 04/23/17 19:20 Ordered 650 mg PO Q6H PRN Calcium Carbonate [Tums] Med 04/23/17 18:14 Active 500 mg PO Q2HR PRN Clopidogrel [Plavix] Med 04/24/17 09:00 Ordered 75 mg PO DAILY Levothyroxine Med 04/24/17 07:30 Ordered 25 mcg PO ACBREAKFAST Piperacillin/Tazobactam [Zosyn] 2.25 gm Med 04/23/17 20:00 Active Sodium Chloride 0.9% [Normal Saline] 50 ml IV Q6H Vancomycin Pharmacy to Dose [Pharmacy to Dose - Med 04/23/17 19:30 Ordered Vancomycin] 1 dose .XX ASDIRECTED Code Status [Resuscitation Status] Routine Resus Stat 04/23/17 18:16 Ordered Medication Orders Acetaminophen (Tylenol) 650 mg PO Q6H PRN PRN Reason: Pain Calcium Carbonate/Glycine (Tums) 500 mg PO Q2HR PRN PRN Reason: Indigestion Clopidogrel Bisulfate (Plavix) 75 mg PO DAILY MARI Dopamine HCl/Dextrose (Dopamine In D5w 400 Mg/250 Ml) 400 mg in 250 mls @ 14.458 mls/hr IV TITRATE MARI; 5 MCG/KG/MIN PRN Reason: Protocol Last Titration: 04/23/17 18:28 Dose: 11 mcg/kg/min, 31.808 mls/hr Admin: 04/23/17 15:24 Dose: 5 mcg/kg/min, 14.458 mls/hr Sodium Chloride (Normal Saline) 1,000 mls @ 125 mls/hr IV ASDIRECTED MARI Last Admin: 04/23/17 16:29 Dose: 125 mls/hr Piperacillin Sod/Tazobactam (Sod 2.25 gm/ Sodium Chloride) 50 mls @ 100 mls/hr IV Q6H MARI Levothyroxine Sodium (Levothyroxine) 25 mcg PO ACBREAKFAST MARI Sodium Chloride (Saline Flush) 10 ml FLUSH ASDIRECTED PRN PRN Reason: Keep Vein Open Last Admin: 04/23/17 13:32 Dose: 10 ml Sodium Chloride (Saline Flush) 2.5 ml FLUSH ASDIRECTED PRN PRN Reason: Keep Vein Open Last Admin: 04/23/17 13:32 Dose: 2.5 ml Assessment/Plan Comment:: I suspect the patient altered mental status, lactic acidosis, and hypotension is due to sepsis from her diverticulitis and abscess. Family is not wanting any aggressive measures such as line placement or draining of abscess as patient tolerated these lines poorly in the past. Goals from family is for comfort. So we will admit for palliative care. Septic shock: Family is wanting the dopamine drip to remain for now and will continue antibiotics. Will place on comfort measures.
[2017-04-23] MEDS ORDERED: Morphine 2 MG/ML Syringe IVPUSH PRN (19:34)
[2017-04-23] MEDS ORDERED: Piperacillin/Tazobactam 2.25 GM in Sodium Chloride 0.9% 50 ML IV SCH (20:00)
[2017-04-23] MEDS ORDERED: fentaNYL 100 MCG/2 ML SDV IVPUSH PRN (21:17)
[2017-04-23] MEDS ORDERED: LORazepam 2 MG/ML MDV IVPUSH PRN (22:42)
--- NOTE | 2017-04-23 22:46 | PCM.SN ---
- Free Text/Narrative Note: Patient is unresponsive and requiring more oxygen. Family is wanting comfort only measures. Will stop antibioics and fluids. Family is requesting bed outside of ICU. Will transfer when bed is available.
[2017-04-24] MEDS ORDERED: Levothyroxine 25 MCG Tab PO SCH (07:30)
[2017-04-24] MEDS ORDERED: Clopidogrel 75 MG Tab PO SCH (09:00)
--- NOTE | 2017-04-24 10:55 | PCM.PN ---
- Review of Systems Systems Review Comment:: patient more alert this morning, denies pain - Patient Data Vitals - most recent: Last Vital Signs Temp 37.0 C 04/24/17 08:00 Pulse 65 04/24/17 08:00 Resp 20 04/24/17 08:00 BP 74/31 L 04/24/17 08:00 Pulse Ox 100 04/24/17 08:00 Weight - most recent: 78.5 kg I&O - last 24 hours: Intake & Output 04/23/17 04/24/17 04/24/17 22:59 06:59 14:59 Intake Total 999 100 Output Total 1400 Balance 999 -1300 Med Orders - Current: Current Medications Acetaminophen (Tylenol) 650 mg PO Q6H PRN PRN Reason: Pain Amoxicillin/Clavulanate Potassium (Augmentin 875 Mg/125 Mg) 1 tab PO BID MARI Calcium Carbonate/Glycine (Tums) 500 mg PO Q2HR PRN PRN Reason: Indigestion Fentanyl (Sublimaze) 25 mcg IVPUSH Q1H PRN PRN Reason: Pain Lorazepam (Ativan) 1 mg IVPUSH Q4H PRN PRN Reason: Agitation Sodium Chloride (Saline Flush) 10 ml FLUSH ASDIRECTED PRN PRN Reason: Keep Vein Open Last Admin: 04/23/17 13:32 Dose: 10 ml Sodium Chloride (Saline Flush) 2.5 ml FLUSH ASDIRECTED PRN PRN Reason: Keep Vein Open Last Admin: 04/23/17 13:32 Dose: 2.5 ml Discontinued Medications Clopidogrel Bisulfate (Plavix) 75 mg PO DAILY MARI Piperacillin Sod/Tazobactam (Sod 3.375 gm/ Sodium Chloride) 50 mls @ 100 mls/ hr IV ONETIME ONE Stop: 04/23/17 13:30 Last Admin: 04/23/17 13:23 Dose: 100 mls/hr Sodium Chloride (Normal Saline) 1,000 mls @ 999 mls/hr IV STAT ONE Stop: 04/23/17 14:01 Last Admin: 04/23/17 14:51 Dose: 999 mls/hr Dopamine HCl/Dextrose (Dopamine In D5w 400 Mg/250 Ml) 400 mg in 250 mls @ 14.458 mls/hr IV TITRATE MARI; 5 MCG/KG/MIN PRN Reason: Protocol Last Titration: 04/23/17 22:08 Dose: 0 mcg/kg/min, 0 mls/hr Vancomycin HCl 1 gm/ Sodium (Chloride) 250 mls @ 250 mls/hr IV ONETIME ONE Stop: 04/23/17 16:45 Last Admin: 04/23/17 16:32 Dose: 250 mls/hr Sodium Chloride (Normal Saline) 1,000 mls @ 125 mls/hr IV ASDIRECTED MARI Last Infusion: 04/23/17 22:45 Dose: 125 mls/hr Piperacillin Sod/Tazobactam (Sod 3.375 gm/ Sodium Chloride) 50 mls @ 100 mls/ hr IV Q6H MARI Piperacillin Sod/Tazobactam (Sod 2.25 gm/ Sodium Chloride) 50 mls @ 100 mls/hr IV Q6H MARI Last Admin: 04/23/17 20:48 Dose: 100 mls/hr Vancomycin HCl 1,250 mg/ (Dextrose/Water) 250 mls @ 167 mls/hr IV Q24H [facility] Levothyroxine Sodium (Levothyroxine) 25 mcg PO ACBREAKFAST [facility] Morphine Sulfate (Morphine) 2 mg IVPUSH Q2H PRN PRN Reason: Pain Vancomycin HCl (Pharmacy To Dose - Vancomycin) 1 dose .XX ASDIRECTED MARI - Exam General: lethargic Lungs: Clear to auscultation, Normal respiratory effort Cardiovascular: Regular Rate, Regular Rhythm Abdomen: soft, no tenderness Extremities: no edema Skin: warm, dry, intact - Problem List Review Problem List Initiated/Reviewed/Updated: Yes - My Orders Last 24 Hours: My Active Orders 04/23/17 18:14 Calcium Carbonate [Tums] 500 mg PO Q2HR PRN 04/23/17 18:16 Code Status [Resuscitation Status] Routine 04/23/17 19:20 Acetaminophen [Tylenol] 650 mg PO Q6H PRN 04/23/17 19:34 Consult to Hospice [CONS] Routine 04/23/17 21:17 fentaNYL [Sublimaze] 25 mcg IVPUSH Q1H PRN 04/23/17 22:42 LORazepam [Ativan] 1 mg IVPUSH Q4H PRN 04/23/17 22:43 Transfer Patient (Change bed) [ADT] Routine 04/24/17 10:51 CBC WITH AUTO DIFF [HEME] Routine COMPREHENSIVE METABOLIC PN,CMP [CHEM] Routine LACTIC ACID,WHOLE BLOOD [BG] Routine 04/24/17 11:00 Amoxicillin/Clavulanate K [Augmentin 875 MG/125 MG] 1 tab PO BID - Plan Plan:: 86 yo female with history of diverticultis with abscess who presents with altered mental status and hypotension. We will continue palliative care.
[2017-04-24] MEDS: Amoxicillin/Clavulanate K 875-125 MG Tab PO SCH ×2 (11:22→20:52)
[2017-04-24 11:44] LABS: CHLORIDE,CL 107 mmol/L (98-110); SODIUM,NA 140 mmol/L (136-146)
[2017-04-24] MEDS: Acetaminophen 325 MG Tab PO PRN (16:58)
[2017-04-25] MEDS: Acetaminophen 325 MG Tab PO PRN (08:39)
--- NOTE | 2017-04-25 09:36 | PCM.PN ---
- Review of Systems Systems Review Comment:: denies pain - Patient Data Vitals - most recent: Last Vital Signs Temp 37.1 C 04/25/17 08:00 Pulse 71 04/25/17 08:00 Resp 14 04/25/17 08:00 BP 113/43 L 04/25/17 08:00 Pulse Ox 94 L 04/25/17 08:00 Weight - most recent: 78.5 kg I&O - last 24 hours: Intake & Output 04/24/17 04/25/17 04/25/17 22:59 06:59 14:59 Intake Total 540 760 Output Total 940 1000 Balance -400 -240 Lab Results last 24 hrs: Laboratory Results - last 24 hr 04/24/17 04/24/17 04/24/17 Range/Units 10:58 10:58 10:58 WBC 7.05 (4.0-11.0) K/uL RBC 3.31 L (4.30-5.90) M/uL Hgb 9.3 L (12.0-16.0) g/dL Hct 30.0 L (36.0-46.0) % MCV 90.6 (80.0-98.0) fL MCH 28.1 (27.0-32.0) pg MCHC 31.0 (31.0-37.0) g/dL RDW Std Deviation 67.3 H (28.0-62.0) fl RDW Coeff of [place] 20 H (11.0-15.0) % Plt Count 126 L (150-400) K/uL MPV 9.90 (7.40-12.00) fL Neut % (Auto) 63.4 (48.0-80.0) % Lymph % (Auto) 22.0 (16.0-40.0) % [place] % (Auto) 12.6 (0.0-15.0) % Eos % (Auto) 1.7 (0.0-7.0) % Baso % (Auto) 0.3 (0.0-1.5) % Neut # (Auto) 4.5 (1.4-5.7) K/uL Lymph # (Auto) 1.6 (0.6-2.4) K/uL [place] # (Auto) 0.9 H (0.0-0.8) K/uL Eos # (Auto) 0.1 (0.0-0.7) K/uL Baso # (Auto) 0.0 (0.0-0.1) K/uL Nucleated RBC % 0.0 /100WBC Nucleated RBCs # 0 K/uL Lactate 1.3 (0.20-2.00) mmol/L Sodium 140 (136-146) mmol/L Potassium 3.8 (3.5-5.1) mmol/L Chloride 107 (98-110) mmol/L Carbon Dioxide 25 (21-31) mmol/L BUN 13 (6.0-23.0) mg/dL Creatinine 0.8 (0.6-1.5) mg/dL Est Cr Clr Drug Dosing 42.54 mL/min Estimated GFR (MDRD) > 60.0 ml/min Glucose 108 (60-110) mg/dL Calcium 7.9 L (8.8-10.8) mg/dL Total Bilirubin 0.4 (0.1-1.5) mg/dL AST 19 (5-40) IU/L ALT 15 (8-54) IU/L Alkaline Phosphatase 62 (40-150) Total Protein 5.5 L (6.0-8.0) g/dL Albumin 2.7 L (3.4-4.8) g/dL Globulin 2.8 (2.0-3.5) g/dL Albumin/Globulin Ratio 1.0 L (1.3-2.8) Med Orders - Current: Current Medications Acetaminophen (Tylenol) 650 mg PO Q6H PRN PRN Reason: Pain Last Admin: 04/25/17 08:39 Dose: 650 mg Calcium Carbonate/Glycine (Tums) 500 mg PO Q2HR PRN PRN Reason: Indigestion Fentanyl (Sublimaze) 25 mcg IVPUSH Q1H PRN PRN Reason: Pain Lorazepam (Ativan) 1 mg IVPUSH Q4H PRN PRN Reason: Agitation Sodium Chloride (Saline Flush) 10 ml FLUSH ASDIRECTED PRN PRN Reason: Keep Vein Open Last Admin: 04/23/17 13:32 Dose: 10 ml Sodium Chloride (Saline Flush) 2.5 ml FLUSH ASDIRECTED PRN PRN Reason: Keep Vein Open Last Admin: 04/23/17 13:32 Dose: 2.5 ml Discontinued Medications Amoxicillin/Clavulanate Potassium (Augmentin 875 Mg/125 Mg) 1 tab PO BID MARI Last Admin: 04/24/17 20:52 Dose: 1 tab Clopidogrel Bisulfate (Plavix) 75 mg PO DAILY MARI Piperacillin Sod/Tazobactam (Sod 3.375 gm/ Sodium Chloride) 50 mls @ 100 mls/ hr IV ONETIME ONE Stop: 04/23/17 13:30 Last Admin: 04/23/17 13:23 Dose: 100 mls/hr Sodium Chloride (Normal Saline) 1,000 mls @ 999 mls/hr IV STAT ONE Stop: 04/23/17 14:01 Last Admin: 04/23/17 14:51 Dose: 999 mls/hr Dopamine HCl/Dextrose (Dopamine In D5w 400 Mg/250 Ml) 400 mg in 250 mls @ 14.458 mls/hr IV TITRATE MARI; 5 MCG/KG/MIN PRN Reason: Protocol Last Titration: 04/23/17 22:08 Dose: 0 mcg/kg/min, 0 mls/hr Vancomycin HCl 1 gm/ Sodium (Chloride) 250 mls @ 250 mls/hr IV ONETIME ONE Stop: 04/23/17 16:45 Last Admin: 04/23/17 16:32 Dose: 250 mls/hr Sodium Chloride (Normal Saline) 1,000 mls @ 125 mls/hr IV ASDIRECTED [facility] Last Infusion: 04/23/17 22:45 Dose: 125 mls/hr Piperacillin Sod/Tazobactam (Sod 3.375 gm/ Sodium Chloride) 50 mls @ 100 mls/ hr IV Q6H MARI Piperacillin Sod/Tazobactam (Sod 2.25 gm/ Sodium Chloride) 50 mls @ 100 mls/hr IV Q6H MARI Last Admin: 04/23/17 20:48 Dose: 100 mls/hr Vancomycin HCl 1,250 mg/ (Dextrose/Water) 250 mls @ 167 mls/hr IV Q24H MARI Levothyroxine Sodium (Levothyroxine) 25 mcg PO ACBREAKFAST MARI Morphine Sulfate (Morphine) 2 mg IVPUSH Q2H PRN PRN Reason: Pain Vancomycin HCl (Pharmacy To Dose - Vancomycin) 1 dose .XX ASDIRECTED MARI - Exam General: no acute distress, lethargic Lungs: Clear to auscultation, Normal respiratory effort Abdomen: soft, no tenderness Extremities: no edema - Problem List Review Problem List Initiated/Reviewed/Updated: Yes - My Orders Last 24 Hours: My Active Orders 04/24/17 11:00 Amoxicillin/Clavulanate K [Augmentin 875 MG/125 MG] 1 tab PO BID - Plan Plan:: will continue comfort measure only per family wishes. Anticipate discharge back to [facility] tomorrow with hospice.
[2017-04-25] MEDS: Amoxicillin/Clavulanate K 875-125 MG Tab PO SCH ×2 (10:28→20:29)
--- NOTE | 2017-04-25 17:56 | PCM.SN ---
- Free Text/Narrative Note: Spoke with family tonight. There goals of care are still primarily comfort but with improving blood pressure they would like to expand therapies. They would prefer to restart home medications and antibiotics. They would like physical therapy if possible. Plan is still to discharge to [facility] tomorrow but not on hospice. I patient were to get dehydrated, hypotensive or lethargic again family would like IV fluids if possible while at [facility] and if no improvement decide on coming back to hospital or continue at [facility] with comfort measures.
[2017-04-25] MEDS: Ciprofloxacin 500 MG Tab PO SCH (20:30)
[2017-04-26] MEDS ORDERED: Levothyroxine 25 MCG Tab PO SCH (07:30)
[2017-04-26] MEDS: Amoxicillin/Clavulanate K 875-125 MG Tab PO SCH (08:12)
[2017-04-26] MEDS: Ciprofloxacin 500 MG Tab PO SCH (08:12)
[2017-04-26] MEDS ORDERED: Clopidogrel 75 MG Tab PO SCH (09:00)
[2017-04-26 10:12] VITALS: BP 123/57
--- NOTE | 2017-04-26 11:45 | PCM.DCSUM1 ---
Discharge Summary - Discharge Data Discharge Date: 04/26/17 Discharge Disposition: DC/Tfer to Acute Hospital 02 Condition: Stable - Patient Summary/Data Hospital Course: Admission diagnosis Sepsis Diverticulitis with abscess Enterobacter UTI. 86 yo female with pmh of cardiomyopathy and diverticultis with abscess. Patient only had partial treatment of her diverticulitis as due to dementia she did not tolerate having lines in place pulled out the drain and PICC lines. Patient had been residing at [facility] since discharge from [facility]. She presents to the [facility] ED with lethargy and hypotension. She was noted to have blood pressures in the 60s systolic. She had no fever or leukocytosis. Lactic acid was 3.7. She was bolused 2 liters, given zosyn, vancomycin, and started on a dopamine drip while in the ER. After talking with family they requested palliative care and dopamine drip, IV fluids and antibiobics were discontinued. After a day of just palliative care her blood pressure and mentation improved. She was then restarted on oral antibiotics of Augmentin for diverticulitis and Ciprofloxacin for Enterobacter UTI. She will be discharged back to [facility] today. Family is wanting to focus on comfort measures and try to avoid further hospitalization and if possible would request outpatient IV fluids if patient became dehydrated or hypotensive again. Patient 's lasix and metoprolol were discontinued. - Patient Instructions Diet: Regular Diet as Tolerated Activity: As Tolerated Other/Special Instructions: PT and OT consult. O2 via NC prn - Discharge Plan Prescriptions/Med Rec: Ciprofloxacin [Ciprofloxacin HCl] 500 mg PO BID #10 tablet Home Medications: Home Meds Aspirin 81 mg PO DAILY 03/23/17 [History] Clopidogrel Bisulfate [Clopidogrel] 75 mg PO DAILY 03/23/17 [History] Levothyroxine Sodium [Levo-T] 25 mcg PO ACBREAKFAST 03/23/17 [History] Memantine HCl [Namenda Xr] 28 mg PO DAILY 03/23/17 [History] Sertraline HCl [Zoloft] 100 mg PO DAILY 03/23/17 [History] Acetaminophen 650 mg PO Q6H PRN 04/23/17 [History] Amoxicillin/Potassium Clav [Augmentin 875-125 Tablet] 1 tab PO BID 04/23/17 [ History] Oxybutynin 5 mg PO BID 04/23/17 [History] Potassium Chloride [Klor-Con 10] 20 meq PO TIDMEALS 04/23/17 [History] Simvastatin [Zocor] 20 mg PO BEDTIME 04/23/17 [History] Ciprofloxacin [Ciprofloxacin HCl] 500 mg PO BID #10 tablet 04/26/17 [Rx] Furosemide [Lasix] 20 mg PO BID 04/26/17 [History] Metoprolol Tartrate 25 mg PO BID 04/26/17 [History] Potassium Chloride 20 meq PO BID 04/26/17 [History] Referrals: Amol Phipps MD [Physician] - 05/03/17 (next [facility]) - Patient Data Vitals - Most Recent: Last Vital Signs Temp 36.8 C 04/26/17 08:00 Pulse 82 04/26/17 08:00 Resp 16 04/26/17 08:00 BP 123/57 L 04/26/17 08:00 Pulse Ox 95 04/26/17 10:41 Weight - Most Recent: 78.5 kg I&O - Last 24 hours: Intake & Output 04/25/17 04/26/17 04/26/17 22:59 06:59 14:59 Intake Total 200 500 Output Total 750 700 Balance -550 -200 Med Orders - Current: Current Medications Acetaminophen (Tylenol) 650 mg PO Q6H PRN PRN Reason: Pain Last Admin: 04/25/17 08:39 Dose: 650 mg Amoxicillin/Clavulanate Potassium (Augmentin 875 Mg/125 Mg) 1 tab PO Q12HR [facility] Last Admin: 04/26/17 08:12 Dose: 1 tab Calcium Carbonate/Glycine (Tums) 500 mg PO Q2HR PRN PRN Reason: Indigestion Ciprofloxacin (Ciprofloxacin Hcl) 500 mg PO BID [facility] Last Admin: 04/26/17 08:12 Dose: 500 mg Clopidogrel Bisulfate (Plavix) 75 mg PO DAILY [facility] Last Admin: 04/26/17 08:12 Dose: 75 mg Fentanyl (Sublimaze) 25 mcg IVPUSH Q1H PRN PRN Reason: Pain Levothyroxine Sodium (Levothyroxine) 25 mcg PO ACBREAKFAST [facility] Last Admin: 04/26/17 06:47 Dose: 25 mcg Lorazepam (Ativan) 1 mg IVPUSH Q4H PRN PRN Reason: Agitation Sodium Chloride (Saline Flush) 10 ml FLUSH ASDIRECTED PRN PRN Reason: Keep Vein Open Last Admin: 04/23/17 13:32 Dose: 10 ml Sodium Chloride (Saline Flush) 2.5 ml FLUSH ASDIRECTED PRN PRN Reason: Keep Vein Open Last Admin: 04/23/17 13:32 Dose: 2.5 ml Discontinued Medications Amoxicillin/Clavulanate Potassium (Augmentin 875 Mg/125 Mg) 1 tab PO BID [facility] Last Admin: 04/25/17 10:28 Dose: Not Given Clopidogrel Bisulfate (Plavix) 75 mg PO DAILY [facility] Piperacillin Sod/Tazobactam (Sod 3.375 gm/ Sodium Chloride) 50 mls @ 100 mls/ hr IV ONETIME ONE Stop: 04/23/17 13:30 Last Admin: 04/23/17 13:23 Dose: 100 mls/hr Sodium Chloride (Normal Saline) 1,000 mls @ 999 mls/hr IV STAT ONE Stop: 04/23/17 14:01 Last Admin: 04/23/17 14:51 Dose: 999 mls/hr Dopamine HCl/Dextrose (Dopamine In D5w 400 Mg/250 Ml) 400 mg in 250 mls @ 14.458 mls/hr IV TITRATE MARI; 5 MCG/KG/MIN PRN Reason: Protocol Last Titration: 04/23/17 22:08 Dose: 0 mcg/kg/min, 0 mls/hr Vancomycin HCl 1 gm/ Sodium (Chloride) 250 mls @ 250 mls/hr IV ONETIME ONE Stop: 04/23/17 16:45 Last Admin: 04/23/17 16:32 Dose: 250 mls/hr Sodium Chloride (Normal Saline) 1,000 mls @ 125 mls/hr IV ASDIRECTED [facility]I Last Infusion: 04/23/17 22:45 Dose: 125 mls/hr Piperacillin Sod/Tazobactam (Sod 3.375 gm/ Sodium Chloride) 50 mls @ 100 mls/ hr IV Q6H [facility] Piperacillin Sod/Tazobactam (Sod 2.25 gm/ Sodium Chloride) 50 mls @ 100 mls/hr IV Q6H [facility] Last Admin: 04/23/17 20:48 Dose: 100 mls/hr Vancomycin HCl 1,250 mg/ (Dextrose/Water) 250 mls @ 167 mls/hr IV Q24H [facility] Levothyroxine Sodium (Levothyroxine) 25 mcg PO ACBREAKFAST [facility] Morphine Sulfate (Morphine) 2 mg IVPUSH Q2H PRN PRN Reason: Pain Vancomycin HCl (Pharmacy To Dose - Vancomycin) 1 dose .XX ASDIRECTED [facility]I *Q Meaningful Use (DIS) - VTE *Q VTE Criteria *Q: - Stroke *Q Stroke Criteria *Q: - AMI *Q AMI Criteria *Q:
--- NOTE | 2017-04-27 13:29 | ECHO ---
EXAM DATE: 04/23/17 PATIENT'S AGE: 86 The echocardiogram report can be seen in this patient's EMR (Electronic Medical Record) in the Reports section. VINH
== END 2017-04-26 13:30 | DRG 872 ==
LOC: MW.ED 12:43 → OBSVTOIN 16:23 → MW.ICU 16:23 → MW.MS 23:01
PROVIDERS: ADMIT Internal Medicine; ATTEND Internal Medicine
DX: A41.9 Sepsis, unspecified organism (principal); I95.9 Hypotension, unspecified; I25.10 Atherosclerotic heart disease of native coronary artery without angina pectoris; I51.9 Heart disease, unspecified; E03.9 Hypothyroidism, unspecified; E78.00 Pure hypercholesterolemia, unspecified; I10 Essential (primary) hypertension; G30.9 Alzheimer's disease, unspecified; F02.80 Dementia in other diseases classified elsewhere, unspecified severity, without behavioral disturbance, psychotic disturbance, mood disturbance, and anxiety; Z88.0 Allergy status to penicillin; Z88.8 Allergy status to other drugs, medicaments and biological substances; Z79.82 Long term (current) use of aspirin; Z79.899 Other long term (current) drug therapy; Z95.1 Presence of aortocoronary bypass graft; Z87.891 Personal history of nicotine dependence
CPT/HCPCS: 36600; 70450; 71010; 74176; 80053; 81001; 82550; 82803; 82962; 83605; 83880; 84484; 85025; 85610; 86140; 87040 ×2; 87086; 87088; 87186; 93005; 93306; 96361; 96365; 96367; 99285; J1265; J2543; J7040 ×3; J7050; 36415; 96366; 96368; A9270-GY; J3370